=== PATIENT | female | born 1980 | race American Indian/Alaskan Native ===

== ENCOUNTER 2016-12-12 21:17 | Emergency (ER) | payer OTHER ==
[2016-12-13 03:59] VITALS: BP 166/94
--- NOTE | 2016-12-13 05:07 | Emergency Department Report ---
ED Female HPI - General Chief complaint: Urogenital-Female Stated complaint: VAGINAL IRRITATION Time Seen by Provider: 12/13/16 04:22 Source: patient Mode of arrival: Ambulatory Limitations: No Limitations - History of Present Illness Initial comments: 36 y/o female complain of vaginal itching and white discharge x 1 week with itching. Complaint: vaginal discharge Onset/Timin -: week(s) Improves with: none Worsens with: none Are you Now?: No - Related Data Home Medications Medication Instructions Recorded Confirmed Last Taken Hydrochlorothiazide [HCTZ] 0 mg PO QDAY 11/12/15 11/12/15 Unknown amLODIPine [Norvasc] 0 mg PO DAILY 11/12/15 11/12/15 Unknown Previous Rx's Medication Instructions Recorded Last Taken Type Phenazopyridine [Pyridium] 200 mg PO BID #6 tab 11/13/15 Unknown Rx Sulfamethoxazole/Trimethoprim 1 each PO BID #14 tablet 11/13/15 Unknown Rx [Bactrim DS TAB] Fluconazole [Diflucan TAB] 150 mg PO ONCE #1 tablet 05/09/16 Unknown Rx Levofloxacin [Levaquin TAB] 500 mg PO QDAY #5 tablet 05/09/16 Unknown Rx metroNIDAZOLE [Flagyl] 500 mg PO Q12HR #14 tab 05/09/16 Unknown Rx metroNIDAZOLE [Flagyl] 500 mg PO Q12HR #14 tab 12/13/16 Unknown Rx Allergies Allergy/AdvReac Type Severity Reaction Status Date / Time latex AdvReac Itching Verified 11/12/15 17:38 ED Review of Systems ROS: Stated complaint: VAGINAL IRRITATION Other details as noted in HPI Constitutional: denies: chills, fever Eyes: denies: eye pain, eye discharge, vision change ENT: denies: ear pain, throat pain Respiratory: denies: cough, shortness of breath, wheezing Cardiovascular: denies: chest pain, palpitations Endocrine: no symptoms reported Gastrointestinal: denies: abdominal pain, nausea, diarrhea Genitourinary: discharge. denies: urgency, dysuria Musculoskeletal: denies: back pain, joint swelling, arthralgia Skin: denies: rash, lesions Neurological: denies: headache, weakness, paresthesias Psychiatric: denies: anxiety, depression Hematological/Lymphatic: denies: easy bleeding, easy bruising ED Past Medical Hx - Past Medical History Previous Medical History?: Yes Hx Hypertension: Yes - Surgical History Past Surgical History?: No - Social History Smoking Status: Current Every Day Smoker Substance Use Type: None - Medications Home Medications: Home Medications Medication Instructions Recorded Confirmed Last Taken Type Hydrochlorothiazide [HCTZ] 0 mg PO QDAY 11/12/15 11/12/15 Unknown History amLODIPine [Norvasc] 0 mg PO DAILY 11/12/15 11/12/15 Unknown History Phenazopyridine [Pyridium] 200 mg PO BID #6 tab 11/13/15 Unknown Rx Sulfamethoxazole/Trimethoprim 1 each PO BID #14 tablet 11/13/15 Unknown Rx [Bactrim DS TAB] Fluconazole [Diflucan TAB] 150 mg PO ONCE #1 tablet 05/09/16 Unknown Rx Levofloxacin [Levaquin TAB] 500 mg PO QDAY #5 tablet 05/09/16 Unknown Rx metroNIDAZOLE [Flagyl] 500 mg PO Q12HR #14 tab 05/09/16 Unknown Rx metroNIDAZOLE [Flagyl] 500 mg PO Q12HR #14 tab 12/13/16 Unknown Rx ED Physical Exam - General Limitations: No Limitations General appearance: alert, in no apparent distress - Head Head exam: Present: atraumatic, normocephalic - Eye Eye exam: Present: normal appearance, PERRL - ENT ENT exam: Present: mucous membranes moist - Neck Neck exam: Present: normal inspection - Respiratory Respiratory exam: Present: normal lung sounds bilaterally. Absent: respiratory distress, wheezes - Cardiovascular Cardiovascular Exam: Present: regular rate, normal rhythm. Absent: systolic murmur, diastolic murmur, rubs, gallop - GI/Abdominal GI/Abdominal exam: Present: soft, normal bowel sounds - External exam: Present: normal external exam. Absent: erythema, swelling, lesions, lacerations Speculum exam: Present: vaginal discharge, cervical discharge. Absent: erythema , vaginal bleeding, foreign body, tissue, laceration Bi-manual exam: Present: normal bi-manual exam. Absent: cervical motion tendernes, adnexal tenderness, adnexal mass, uterine tenderness - Extremities Exam Extremities exam: Present: normal inspection - Back Exam Back exam: Present: normal inspection - Neurological Exam Neurological exam: Present: alert, oriented X3 - Psychiatric Psychiatric exam: Present: normal affect, normal mood - Skin Skin exam: Present: warm, dry, intact, normal color. Absent: rash ED Course Vital Signs 12/12/16 12/13/16 21:48 03:59 Temperature 98.3 F 97.9 F Pulse Rate 95 H 67 Respiratory 18 20 Rate Blood Pressure 160/118 Blood Pressure 166/94 [Right] O2 Sat by Pulse 100 100 Oximetry ED Medical Decision Making - Medical Decision Making Bacterial vaginosis Wet prep shows > 20 clue cells Critical care attestation.: If time is entered above; I have spent that time in minutes in the direct care of this critically ill patient, excluding procedure time. ED Disposition Clinical Impression: Bacterial vaginosis Disposition: DISCHARGED TO HOME OR SELFCARE Is pt being admited?: No Does the pt Need Aspirin: No Condition: Stable Instructions: Bacterial Vaginosis (ED) Prescriptions: metroNIDAZOLE [Flagyl] 500 mg PO Q12HR #14 tab Referrals: PRIMARY CARE, [Primary Care Provider] - 3-5 Days Forms: STI Treatment and Prevention, Work/School Release Form(ED) Time of Disposition: 05:50
[2016-12-13 05:36] LABS: Bacteria,Urine 1+ /HPF (Negative); Bilirubin,Urine NEG (Negative); Blood,Urine SM (Negative); Ketones,Urine NEG (Negative); Leukocyte Esterase,Urine MOD (Negative); Mucus,Urine FEW /HPF; Nitrite,Urine NEG (Negative); Urobilinogen,Urine < 2.0 mg/dL (<2.0)
== END 2016-12-13 06:09 | disposition home or self-care (01) ==
LOC: ED 21:17
DX: N76.0 Acute vaginitis (principal); I10 Essential (primary) hypertension; F17.200 Nicotine dependence, unspecified, uncomplicated
CPT/HCPCS: 81001; 81025; 87210; 87591; 99284

== ENCOUNTER 2017-03-08 09:23 | Emergency (ER) | payer SELFPAY ==
--- NOTE | 2017-03-08 12:33 | Emergency Department Report ---
ED ENT HPI - General Chief complaint: Sore Throat Stated complaint: THROAT SORE Time Seen by Provider: 03/08/17 12:22 Source: patient Mode of arrival: Ambulatory Limitations: No Limitations - History of Present Illness Initial comments: 36-year-old female past medical history hypertension presents with complaint of sore throat worsening 3 days. Patient has slightly muffled voice. States she is having difficulty swallowing solids and pain with swallowing liquids. MD complaint: sore throat Onset/Timin -: days(s) Location: throat Severity: moderate Severity scale (0 -10): 6 Quality: aching, sharp, constant - Related Data Home Medications Medication Instructions Recorded Confirmed Last Taken amLODIPine [Norvasc] 10 mg PO DAILY 11/12/15 03/08/17 03/06/17 09:00 Previous Rx's Medication Instructions Recorded Last Taken Type Acetaminophen/Codeine [Tylenol 1 tab PO Q6H PRN #12 tab 03/08/17 Unknown Rx /Codeine # 3 tab] Benzocaine/Menthol [Cepacol Sore 1 each MM Q4H PRN #18 lozenge 03/08/17 Unknown Rx Throat Lozenge] Clindamycin [Clindamycin CAP] 300 mg PO Q6H #28 capsule 03/08/17 Unknown Rx Ibuprofen [Motrin] 800 mg PO Q8HR PRN #30 tablet 03/08/17 Unknown Rx Potassium Chloride 20 meq PO QDAY #10 packet 03/08/17 Unknown Rx amLODIPine [Norvasc] 10 mg PO DAILY #30 tab 03/08/17 Unknown Rx Allergies Allergy/AdvReac Type Severity Reaction Status Date / Time latex AdvReac Itching Verified 03/08/17 10:22 ED Dental HPI - General Chief complaint: Sore Throat Stated complaint: THROAT SORE Time Seen by Provider: 03/08/17 12:22 Source: patient Mode of arrival: Ambulatory Limitations: No Limitations - Related Data Home Medications Medication Instructions Recorded Confirmed Last Taken amLODIPine [Norvasc] 10 mg PO DAILY 11/12/15 03/08/17 03/06/17 09:00 Previous Rx's Medication Instructions Recorded Last Taken Type Acetaminophen/Codeine [Tylenol 1 tab PO Q6H PRN #12 tab 03/08/17 Unknown Rx /Codeine # 3 tab] Benzocaine/Menthol [Cepacol Sore 1 each MM Q4H PRN #18 lozenge 03/08/17 Unknown Rx Throat Lozenge] Clindamycin [Clindamycin CAP] 300 mg PO Q6H #28 capsule 03/08/17 Unknown Rx Ibuprofen [Motrin] 800 mg PO Q8HR PRN #30 tablet 03/08/17 Unknown Rx Potassium Chloride 20 meq PO QDAY #10 packet 03/08/17 Unknown Rx amLODIPine [Norvasc] 10 mg PO DAILY #30 tab 03/08/17 Unknown Rx Allergies Allergy/AdvReac Type Severity Reaction Status Date / Time latex AdvReac Itching Verified 03/08/17 10:22 ED Review of Systems ROS: Stated complaint: THROAT SORE Other details as noted in HPI Constitutional: malaise. denies: chills, fever Eyes: denies: eye pain, eye discharge, vision change ENT: throat pain. denies: ear pain Respiratory: denies: cough, shortness of breath, wheezing Cardiovascular: denies: chest pain, palpitations Endocrine: no symptoms reported Gastrointestinal: denies: abdominal pain, nausea, diarrhea Genitourinary: denies: urgency, dysuria, discharge Musculoskeletal: denies: back pain, joint swelling, arthralgia Skin: denies: rash, lesions Neurological: denies: headache, weakness, paresthesias Psychiatric: denies: anxiety, depression Hematological/Lymphatic: denies: easy bleeding, easy bruising ED Past Medical Hx - Past Medical History Hx Hypertension: Yes - Surgical History Past Surgical History?: No - Social History Smoking Status: Current Every Day Smoker Substance Use Type: Alcohol - Medications Home Medications: Home Medications Medication Instructions Recorded Confirmed Last Taken Type amLODIPine [Norvasc] 10 mg PO DAILY 11/12/15 03/08/17 03/06/17 09:00 History Acetaminophen/Codeine [Tylenol 1 tab PO Q6H PRN #12 tab 03/08/17 Unknown Rx /Codeine # 3 tab] Benzocaine/Menthol [Cepacol Sore 1 each MM Q4H PRN #18 lozenge 03/08/17 Unknown Rx Throat Lozenge] Clindamycin [Clindamycin CAP] 300 mg PO Q6H #28 capsule 03/08/17 Unknown Rx Ibuprofen [Motrin] 800 mg PO Q8HR PRN #30 tablet 03/08/17 Unknown Rx Potassium Chloride 20 meq PO QDAY #10 packet 03/08/17 Unknown Rx amLODIPine [Norvasc] 10 mg PO DAILY #30 tab 03/08/17 Unknown Rx ED Physical Exam - General Limitations: No Limitations General appearance: alert, in no apparent distress - Head Head exam: Present: atraumatic, normocephalic - Eye Eye exam: Present: normal appearance, PERRL, EOMI - ENT ENT exam: Present: mucous membranes moist - Expanded ENT Exam Expanded Throat exam: Positive: tonsillar erythema, tonsillomegaly, tonsillar exudate, L peritonsillar mass - Neck Neck exam: Present: normal inspection, tenderness (+ cervical adenopathy), full ROM - Respiratory Respiratory exam: Present: normal lung sounds bilaterally. Absent: respiratory distress - Cardiovascular Cardiovascular Exam: Present: regular rate, normal rhythm. Absent: systolic murmur, diastolic murmur, rubs, gallop - GI/Abdominal GI/Abdominal exam: Present: soft, normal bowel sounds - Extremities Exam Extremities exam: Present: normal inspection - Back Exam Back exam: Present: normal inspection - Neurological Exam Neurological exam: Present: alert, oriented X3 - Psychiatric Psychiatric exam: Present: normal affect, normal mood - Skin Skin exam: Present: warm, dry, intact, normal color. Absent: rash ED Course Vital Signs 03/08/17 03/08/17 10:18 15:12 Temperature 98.4 F Pulse Rate 96 H 82 Respiratory 18 Rate Blood Pressure 161/110 156/102 O2 Sat by Pulse 100 Oximetry ED Medical Decision Making - Lab Data Result diagrams: 03/08/17 12:36 03/08/17 12:36 - Medical Decision Making A/P: Left peritonsillar cellulitis, asymptomatic HTN 1-CT scan with contrast shows no defined abscess does show inflammation consistent with infection 2-patient given 600 mg IV clindamycin will continue clindamycin 4 times a day for one week 3-Motrin when necessary, Tylenol 3 short course when necessary 4-sore throat lozenges 5- advised patient to return to the ED if symptoms worsen despite antibiotic and anti-inflammatory use 6-pt able to tolerate by mouth fluids without difficulty 7- follow up with ENT and primary care 8- pt states she has not taken her amlodipine in a month. report no CP, palps, nausea, SOB, no headache or dizziness. will fill script and have pt f/u with PMD 9- kphos for potassium repletion Critical care attestation.: If time is entered above; I have spent that time in minutes in the direct care of this critically ill patient, excluding procedure time. ED Disposition Clinical Impression: Cellulitis of tonsil Disposition: DISCHARGED TO HOME OR SELFCARE Is pt being admited?: No Does the pt Need Aspirin: No Condition: Stable Instructions: Cellulitis (ED), Tonsillitis (ED) Prescriptions: Acetaminophen/Codeine [Tylenol /Codeine # 3 tab] 1 tab PO Q6H PRN #12 tab PRN Reason: Sore Throat amLODIPine [Norvasc] 10 mg PO DAILY #30 tab Benzocaine/Menthol [Cepacol Sore Throat Lozenge] 1 each MM Q4H PRN #18 lozenge PRN Reason: Sore Throat Clindamycin [Clindamycin CAP] 300 mg PO Q6H #28 capsule Ibuprofen [Motrin] 800 mg PO Q8HR PRN #30 tablet PRN Reason: Sore Throat Potassium Chloride 20 meq PO QDAY #10 packet Referrals: [facility] [Provider Group] - 3-5 Days [facility] [Provider Group] - 3-5 Days [facility] [Outside] - 3-5 Days REYNOLD MANRIQUE MD [Staff Physician] - 3-5 Days Forms: Work/School Release Form(ED) Time of Disposition: 14:37
[2017-03-08] MEDS ORDERED: DECADRON IV ONE (12:34)
[2017-03-08] MEDS ORDERED: MORPHINE IV ONE (12:34)
[2017-03-08] MEDS ORDERED: CLEOCIN 600 MG/50 mL 600 MG/50 ML BAG IV ONE (12:36)
[2017-03-08 12:53] LABS: Basophils % (Auto) 0.2 % (0.0-1.8); Hematocrit 32.6 % (30.3-42.9); Hemoglobin 10.5 gm/dl (10.1-14.3); Mean Corpuscular HGB Conc 32 % (30-34); Mean Corpuscular Volume 80 fl (79-97); Platelet Count 260 K/mm3 (140-440); Red Blood Count 4.06 M/mm3 (3.65-5.03); Red Cell Distribution Width 16.4 % (13.2-15.2); White Blood Count 14.3 K/mm3 (4.5-11.0)
[2017-03-08 12:57] LABS: Mean Corpuscular Hemoglobin 26 pg (28-32)
[2017-03-08 13:09] LABS: Anion Gap 21 mmol/L; Blood Urea Nitrogen 9 mg/dL (7-17); Calcium 9.2 mg/dL (8.4-10.2); Carbon Dioxide 24 mmol/L (22-30); Chloride 98.5 mmol/L (98-107); Glucose 78 mg/dL (65-100); Potassium 3.2 mmol/L (3.6-5.0); Sodium 140 mmol/L (137-145)
[2017-03-08] MEDS ORDERED: NACL ONE (13:20)
[2017-03-08] MEDS ORDERED: ZOFRAN IV ONE (13:55)
[2017-03-08] MEDS ORDERED: TORADOL IV ONE (13:55)
--- NOTE | 2017-03-08 14:22 | Cat Scan Report ---
CT NECK WITH CONTRAST: HISTORY: Neck pain, peritonsillar abscess. TECHNIQUE: Helical CT following IV contrast. Sagittal and coronal reformatted images. FINDINGS: There is mild to moderate nonspecific soft tissue swelling in the left side of the palatine tonsils. There is an approximate 1.4 cm area of diminished density in the left palatine tonsils but no peripherally enhancing or mature abscess is identified at this time. The remaining parapharyngeal structures are within normal limits. The airway is patent. There are a few scattered reactive jugular lymph nodes bilaterally. No bulky adenopathy or necrotic lymph nodes. The thyroid gland, bony structures and visualized brain are within normal limits. The lung apices are clear. IMPRESSION: Left peritonsillar soft tissue swelling but no defined abscess is identified at this time.
[2017-03-08] MEDS ORDERED: LIDOCAINE VISCOUS 2% PO ONE (15:02)
[2017-03-08] MEDS ORDERED: NORVASC PO ONE (15:03)
[2017-03-08] MEDS ORDERED: PHOS-NAK PO ONE (15:30)
[2017-03-08 16:41] VITALS: BP 142/90
== END 2017-03-08 16:36 | disposition home or self-care (01) ==
LOC: ED 09:23
DX: J36 Peritonsillar abscess (principal); I10 Essential (primary) hypertension; F17.200 Nicotine dependence, unspecified, uncomplicated
CPT/HCPCS: 36415; 70491; 80048; 81025; 82140; 85025; 87116; 87430; 96365; 96375; 99284; J1100; J1885; J2270; J2405; Q9967

== ENCOUNTER 2017-03-10 05:02 | Inpatient (IN) | payer OTHER ==
[2017-03-10] MEDS ORDERED: DELTASONE PO ONE (05:43)
[2017-03-10] MEDS ORDERED: BENADRYL PO ONE (05:43)
[2017-03-10] MEDS ORDERED: BENADRYL IV ONE (06:06)
--- NOTE | 2017-03-10 07:26 | Emergency Department Report ---
HPI - General Chief Complaint: Allergic Reaction Time Seen by Provider: 03/10/17 07:21 ED Past Medical Hx - Past Medical History Previous Medical History?: Yes Hx Hypertension: Yes Additional medical history: TONSILITIS - Surgical History Past Surgical History?: No - Social History Smoking Status: Current Every Day Smoker Substance Use Type: None - Medications Home Medications: Home Medications Medication Instructions Recorded Confirmed Last Taken Type amLODIPine [Norvasc] 10 mg PO DAILY 11/12/15 03/08/17 03/06/17 09:00 History Acetaminophen/Codeine [Tylenol 1 tab PO Q6H PRN #12 tab 03/08/17 Unknown Rx /Codeine # 3 tab] Benzocaine/Menthol [Cepacol Sore 1 each MM Q4H PRN #18 lozenge 03/08/17 Unknown Rx Throat Lozenge] Clindamycin [Clindamycin CAP] 300 mg PO Q6H #28 capsule 03/08/17 Unknown Rx Ibuprofen [Motrin] 800 mg PO Q8HR PRN #30 tablet 03/08/17 Unknown Rx Potassium Chloride 20 meq PO QDAY #10 packet 03/08/17 Unknown Rx amLODIPine [Norvasc] 10 mg PO DAILY #30 tab 03/08/17 Unknown Rx ED Review of Systems ROS: Stated complaint: REACTION TO MEDICATION, USHA Other details as noted in HPI Physical Exam - Physical Exam Vital Signs: Vital Signs 03/10/17 05:19 Temperature 98.1 F Pulse Rate 81 Respiratory 18 Rate Blood Pressure 161/116 O2 Sat by Pulse 97 Oximetry ED Course Vital Signs 03/10/17 05:19 Temperature 98.1 F Pulse Rate 81 Respiratory 18 Rate Blood Pressure 161/116 O2 Sat by Pulse 97 Oximetry Critical care attestation.: If time is entered above; I have spent that time in minutes in the direct care of this critically ill patient, excluding procedure time. ED Disposition Condition: Stable Referrals: PRIMARY CARE, [Primary Care Provider] - 3-5 Days
--- NOTE | 2017-03-10 07:29 | Emergency Department Report ---
ED ENT HPI - General Chief complaint: Allergic Reaction Stated complaint: REACTION TO MEDICATION, USHA Time Seen by Provider: 03/10/17 07:21 Source: patient Mode of arrival: Ambulatory Limitations: No Limitations - History of Present Illness Initial comments: Patient here complaining and that she was diagnosed with tonsillitis at this hospital 2 days ago. 03/08/2017. She states she was started on clindamycin Fareston night and she did take an medication yesterday. She says she took 4 days worth of her clindamycin and her throat is continued to swell. She says she woke up this morning with facial swelling, ears popping, difficulty swallowing and drooling. She said it is difficult for her to talk. Denies any fever or chills. She said her pain is 10 out of 10 to her throat worse with swallowing. Denies any shortness of breath or chest pain. Patient blood pressure is 161/116 and she said since she started having sore throat hurts been difficult for her to take her Norvasc so she has hasn't taken it for 3 days. Patient was seen on 03/08/2017 CT scan of the neck with IV contrast showed that she had left peritonsillar soft tissue swelling but no deformity and abscess. Her strep culture is and rapid strep were negative. White count 2 days ago was 14.3. Patient was given clindamycin IV prior to discharge. Her potassium at that time was 3.2 and potassium but patient could not take due to difficulty swallowing. BUN/creatinine was normal and she had a negative test. MD complaint: sore throat, difficulty swallowing Onset/Timin -: days(s) Location: throat Severity: severe Severity scale (0 -10): 10 Quality: constant, other (throbbing.) Consistency: constant Improves with: other medication (antibiotic and pain medication) Worsens with: swallowing Associated Symptoms: pain with swallowing, sore throat, other (bilateral ear popping). denies: fever, cough, gum swelling, toothache, tinnitus, hearing loss , discharge from ear, rhinorrhea - Related Data Previous Rx's Medication Instructions Recorded Last Taken Type Acetaminophen/Codeine [Tylenol 1 tab PO Q6H PRN #12 tab 03/11/17 Unknown Rx /Codeine # 3 tab] Amoxicillin/K Clav Tab [Augmentin 1 tab PO Q12HR #28 tab 03/11/17 Unknown Rx 875 mg] Benzocaine/Menthol [Cepacol Sore 1 each MM Q4H PRN #18 lozenge 03/11/17 Unknown Rx Throat Lozenge] Lisinopril [Zestril TAB] 20 mg PO QDAY #30 tablet 03/11/17 Unknown Rx amLODIPine [Norvasc] 10 mg PO DAILY #30 tablet 03/11/17 Unknown Rx Allergies Allergy/AdvReac Type Severity Reaction Status Date / Time latex AdvReac Itching Verified 03/08/17 10:22 ED Dental HPI - General Chief complaint: Allergic Reaction Stated complaint: REACTION TO MEDICATION, USHA Time Seen by Provider: 03/10/17 07:21 Source: patient Mode of arrival: Ambulatory Limitations: No Limitations - Related Data Previous Rx's Medication Instructions Recorded Last Taken Type Acetaminophen/Codeine [Tylenol 1 tab PO Q6H PRN #12 tab 03/11/17 Unknown Rx /Codeine # 3 tab] Amoxicillin/K Clav Tab [Augmentin 1 tab PO Q12HR #28 tab 03/11/17 Unknown Rx 875 mg] Benzocaine/Menthol [Cepacol Sore 1 each MM Q4H PRN #18 lozenge 03/11/17 Unknown Rx Throat Lozenge] Lisinopril [Zestril TAB] 20 mg PO QDAY #30 tablet 03/11/17 Unknown Rx amLODIPine [Norvasc] 10 mg PO DAILY #30 tablet 03/11/17 Unknown Rx Allergies Allergy/AdvReac Type Severity Reaction Status Date / Time latex AdvReac Itching Verified 03/08/17 10:22 ED Review of Systems ROS: Stated complaint: REACTION TO MEDICATION, USHA Other details as noted in HPI Comment: All other systems reviewed and negative Constitutional: denies: chills, fever ENT: throat pain. denies: ear pain, dental pain, congestion Respiratory: no symptoms reported Cardiovascular: denies: chest pain, palpitations, edema, syncope Gastrointestinal: denies: abdominal pain, nausea, vomiting Musculoskeletal: denies: back pain, arthralgia Skin: denies: rash Neurological: denies: headache ED Past Medical Hx - Past Medical History Previous Medical History?: Yes Hx Hypertension: Yes Additional medical history: TONSILITIS - Surgical History Past Surgical History?: No - Family History Family history: hypertension - Social History Smoking Status: Current Every Day Smoker Substance Use Type: None - Medications Home Medications: Home Medications Medication Instructions Recorded Confirmed Last Taken Type Acetaminophen/Codeine [Tylenol 1 tab PO Q6H PRN #12 tab 03/11/17 Unknown Rx /Codeine # 3 tab] Amoxicillin/K Clav Tab [Augmentin 1 tab PO Q12HR #28 tab 03/11/17 Unknown Rx 875 mg] Benzocaine/Menthol [Cepacol Sore 1 each MM Q4H PRN #18 lozenge 03/11/17 Unknown Rx Throat Lozenge] Lisinopril [Zestril TAB] 20 mg PO QDAY #30 tablet 03/11/17 Unknown Rx amLODIPine [Norvasc] 10 mg PO DAILY #30 tablet 03/11/17 Unknown Rx ED Physical Exam - General Limitations: No Limitations General appearance: alert, in no apparent distress - Head Head exam: Present: atraumatic, normocephalic, normal inspection - Eye Eye exam: Present: normal appearance, PERRL, EOMI Pupils: Present: normal accommodation - ENT ENT exam: Present: mucous membranes moist, TM's normal bilaterally, normal external ear exam. Absent: normal orophraynx - Expanded ENT Exam Expanded Ear exam: Present: normal external inspection Mouth exam: Present: drooling, muffled voice, other (uvula shifted to rt) Throat exam: Positive: tonsillar erythema (mitul. Greater on left), tonsillomegaly (left), L peritonsillar mass. Negative: tonsillar exudate, R peritonsillar mass - Neck Neck exam: Present: tenderness, full ROM, lymphadenopathy. Absent: normal inspection (mitul adenopathy) - Respiratory Respiratory exam: Present: normal lung sounds bilaterally. Absent: respiratory distress, wheezes, stridor, chest wall tenderness - Cardiovascular Cardiovascular Exam: Present: regular rate, normal rhythm, normal heart sounds - GI/Abdominal GI/Abdominal exam: Present: soft, normal bowel sounds. Absent: distended, tenderness, rigid - Extremities Exam Extremities exam: Present: normal inspection, full ROM, normal capillary refill. Absent: tenderness, pedal edema, joint swelling, calf tenderness - Back Exam Back exam: Present: normal inspection, full ROM - Neurological Exam Neurological exam: Present: alert, oriented X3, normal gait, reflexes normal. Absent: motor sensory deficit - Psychiatric Psychiatric exam: Present: normal affect, normal mood - Skin Skin exam: Present: warm, dry, intact, normal color. Absent: rash ED Course Vital Signs 03/10/17 03/10/17 03/10/17 05:19 07:35 07:48 Temperature 98.1 F 97.8 F Pulse Rate 81 76 76 Respiratory 18 18 Rate Blood Pressure 161/116 162/101 Blood Pressure 162/101 [Right] O2 Sat by Pulse 97 99 Oximetry 03/10/17 03/10/17 03/10/17 07:54 08:24 09:07 Temperature 98.4 F Pulse Rate 74 Respiratory 18 18 18 Rate Blood Pressure Blood Pressure 148/94 [Right] O2 Sat by Pulse 99 Oximetry 03/10/17 03/10/17 03/10/17 11:39 12:03 12:10 Temperature Pulse Rate 76 Respiratory 18 17 13 Rate Blood Pressure 154/96 Blood Pressure [Right] O2 Sat by Pulse 100 99 Oximetry 03/10/17 03/10/17 03/10/17 12:15 12:20 12:30 Temperature Pulse Rate 76 73 Respiratory 18 13 14 Rate Blood Pressure 156/104 162/103 Blood Pressure [Right] O2 Sat by Pulse 98 100 Oximetry 03/10/17 03/10/17 03/10/17 12:40 12:45 12:50 Temperature 98.2 F Pulse Rate 75 72 72 Respiratory 16 18 11 L Rate Blood Pressure 162/103 162/103 Blood Pressure 162/103 [Right] O2 Sat by Pulse 100 100 99 Oximetry 03/10/17 03/10/17 03/10/17 13:00 13:10 13:24 Temperature Pulse Rate 72 71 Respiratory 11 L 14 Rate Blood Pressure 138/96 138/96 Blood Pressure [Right] O2 Sat by Pulse 100 98 82 L Oximetry Vital Signs 03/10/17 03/10/17 03/10/17 05:19 07:35 07:48 Temperature 98.1 F 97.8 F Pulse Rate 81 76 76 Respiratory 18 18 Rate Blood Pressure 161/116 162/101 Blood Pressure 162/101 [Right] O2 Sat by Pulse 97 99 Oximetry 03/10/17 03/10/17 03/10/17 07:54 08:24 09:07 Temperature 98.4 F Pulse Rate 74 Respiratory 18 18 18 Rate Blood Pressure Blood Pressure 148/94 [Right] O2 Sat by Pulse 99 Oximetry - Reevaluation(s) Reevaluation #1: 03/10/17 08:00 Patient given Benadryl IV, Solumedrol IV, IV fluids started, morphine and Toradol IV, Zofran IV and potassium rider 40 mEq IV. Her blood pressure is elevated and she is unable to take her medication due to difficulty swallowing therefore she was given hydralazine 20 mg IV. Patient awaiting CT scan. Labs ordered and pending. I Discussed with patient treatment plan and she is in agreement. Reevaluation #2: 03/10/17 09:25 Dr zazueta examining patient. Patient stable. Patient will be admitted for iv abx 03/10/17 09:27 Reevaluation #3: 03/10/17 10:20 Dr. Hayden hospitalist evaluate patient. I instructed on D5 half-normal saline at 1 25 cc an hour ED Medical Decision Making - Lab Data Result diagrams: 03/11/17 03:58 03/11/17 03:58 Lab Results 03/10/17 03/10/17 03/10/17 Range/Units 07:46 07:46 07:46 WBC 14.3 H (4.5-11.0) K/mm3 RBC 3.92 (3.65-5.03) M/mm3 Hgb 10.2 (10.1-14.3) gm/dl Hct 31.8 (30.3-42.9) % MCV 81 (79-97) fl MCH 26 L (28-32) pg MCHC 32 (30-34) % RDW 16.3 H (13.2-15.2) % Plt Count 265 (140-440) K/mm3 Lymph % (Auto) 10.9 L (13.4-35.0) % Marin % (Auto) 3.0 (0.0-7.3) % Eos % (Auto) 0.1 (0.0-4.3) % Baso % (Auto) 0.1 (0.0-1.8) % Lymph # 1.6 (1.2-5.4) K/mm3 Marin # 0.4 (0.0-0.8) K/mm3 Eos # 0.0 (0.0-0.4) K/mm3 Baso # 0.0 (0.0-0.1) K/mm3 Seg Neutrophils % 85.9 H (40.0-70.0) % Seg Neutrophils # 12.3 H (1.8-7.7) K/mm3 PT 13.2 (12.2-14.9) Sec. INR 1.01 (0.87-1.13) APTT 27.0 (24.2-36.6) Sec. Sodium 140 (137-145) mmol/L Potassium 3.5 L (3.6-5.0) mmol/L Chloride 101.4 (98-107) mmol/L Carbon Dioxide 24 (22-30) mmol/L Anion Gap 18 mmol/L BUN 10 (7-17) mg/dL Creatinine 0.8 (0.7-1.2) mg/dL Estimated GFR > 60 ml/min BUN/Creatinine Ratio 12.50 % Glucose 88 (65-100) mg/dL Lactic Acid (0.7-2.0) mmol/L Calcium 8.8 (8.4-10.2) mg/dL Magnesium (1.7-2.3) mg/dL Total Bilirubin 0.40 (0.1-1.2) mg/dL Direct Bilirubin < 0.2 (0-0.2) mg/dL AST 9 (5-40) units/L ALT 13 (7-56) units/L Alkaline Phosphatase 53 (35-129) units/L C-Reactive Protein 5.60 H (0.00-1.30) mg/dL Total Protein 7.8 (6.3-8.2) g/dL Albumin 3.7 L (3.9-5) g/dL Albumin/Globulin Ratio 0.9 % 03/10/17 03/10/17 Range/Units 07:46 07:46 WBC (4.5-11.0) K/mm3 RBC (3.65-5.03) M/mm3 Hgb (10.1-14.3) gm/dl Hct (30.3-42.9) % MCV (79-97) fl MCH (28-32) pg MCHC (30-34) % RDW (13.2-15.2) % Plt Count (140-440) K/mm3 Lymph % (Auto) (13.4-35.0) % Marin % (Auto) (0.0-7.3) % Eos % (Auto) (0.0-4.3) % Baso % (Auto) (0.0-1.8) % Lymph # (1.2-5.4) K/mm3 Marin # (0.0-0.8) K/mm3 Eos # (0.0-0.4) K/mm3 Baso # (0.0-0.1) K/mm3 Seg Neutrophils % (40.0-70.0) % Seg Neutrophils # (1.8-7.7) K/mm3 PT (12.2-14.9) Sec. INR (0.87-1.13) APTT (24.2-36.6) Sec. Sodium (137-145) mmol/L Potassium (3.6-5.0) mmol/L Chloride (98-107) mmol/L Carbon Dioxide (22-30) mmol/L Anion Gap mmol/L BUN (7-17) mg/dL Creatinine (0.7-1.2) mg/dL Estimated GFR ml/min BUN/Creatinine Ratio % Glucose (65-100) mg/dL Lactic Acid 1.00 (0.7-2.0) mmol/L Calcium (8.4-10.2) mg/dL Magnesium 2.10 (1.7-2.3) mg/dL Total Bilirubin (0.1-1.2) mg/dL Direct Bilirubin (0-0.2) mg/dL AST (5-40) units/L ALT (7-56) units/L Alkaline Phosphatase (35-129) units/L C-Reactive Protein (0.00-1.30) mg/dL Total Protein (6.3-8.2) g/dL Albumin (3.9-5) g/dL Albumin/Globulin Ratio % bloodCultures are pending - Radiology Data Radiology results: report reviewed CT scan of the neck with IV contrast showed reidentified inflammatory changes of the palatine tonsils more on the left. There is more coalescent decreased density of the left palatine tonsil with phlegm on and likely early abscess formation. There is narrowing of the pharyngeal airway at this level as well as worst nasopharyngeal airway narrowing with mucosal swelling of the nasopharynx. Soft tissue density within the nasopharynx is not excluded. Mild mucosal disease of the maxillary sinuses - Medical Decision Making Collaborated with Dr. Zazueta on patient presentation clinical findings along with diagnosis and lab results. He evaluated patient and it was decided the patient will be admitted by hospitalist for antibiotic treatment. ED course: Patient presents to edges room with complaints of worsening sore throat and inability to swallow. He was recently seen and diagnosed with tonsillitis CT scan was done of her neck with IV contrast and it showed that she had inflammatory changes to her tonsils left greater than right. She is now complaining that is very hard for her to swallow, she's strolling anaphoresis changing. Repeat CT scan showed that patient has inflammatory changes to tonsils that new left peritonsillar abscess which is minimal. Patient was given IV fluid in emergency room. Dr. Hayden the hospitalist was consulted and he saw patient in ED. Patient to be admitted to ICU. Patient updated on her CT scan results and plans to admit her to ICU. She is in agreement. Patient with left peritonsillar abscess, tonsillitis, pharyngitis, Leukocytosis, hypokalemia and elevate dblood pressure with DX of HTN. She has not taken BP meds because of difficulty swallowing.Patient given Benadryl IV, Solumedrol IV, IV fluids started, morphine and Toradol IV, Zofran IV and potassium rider 40 mEq IV. Her blood pressure is elevated and she is unable to take her medication due to difficulty swallowing therefore she was given hydralazine 20 mg IV. BP has normalized. Patient said her pain is better. CRP was elevated and white count is normal with mild shifting to the left. Lactic acid 1.0. She is in stable condition awaiting ICU bed. Critical care attestation.: If time is entered above; I have spent that time in minutes in the direct care of this critically ill patient, excluding procedure time. ED Disposition Clinical Impression: Peritonsillar abscess, Hypokalemia, Elevated blood pressure reading with diagnosis of hypertension Acute pharyngitis Qualifiers: Pharyngitis/tonsillitis etiology: unspecified etiology Qualified Code(s): J02.9 - Acute pharyngitis, unspecified Acute tonsillitis Qualifiers: Pharyngitis/tonsillitis etiology: unspecified etiology Qualified Code(s): J03.90 - Acute tonsillitis, unspecified Leukocytosis Qualifiers: Leukocytosis type: unspecified Qualified Code(s): D72.829 - Elevated white blood cell count, unspecified Disposition: OP ADMITTED IP TO THIS HOSP Is pt being admited?: Yes Does the pt Need Aspirin: No Condition: Stable
[2017-03-10] MEDS ORDERED: APRESOLINE IV ONE (07:36)
[2017-03-10] MEDS ORDERED: NACL ONE (07:36)
[2017-03-10] MEDS ORDERED: NACL 0.9% 1000 ML 1,000 ML IV ONE (07:38)
[2017-03-10] MEDS ORDERED: ZOSYN/NS 4.5GM/100ML 4.5 GM/100 ML VIAL IV ONE (07:40)
[2017-03-10] MEDS ORDERED: MORPHINE IV ONE (07:43)
[2017-03-10] MEDS ORDERED: KCL 10MEQ/100ML 10 MEQ/100 ML BAG IV ONE (07:59)
[2017-03-10 08:06] LABS: Basophils % (Auto) 0.1 % (0.0-1.8); Eosinophils % (Auto) 0.1 % (0.0-4.3); Hematocrit 31.8 % (30.3-42.9); Hemoglobin 10.2 gm/dl (10.1-14.3); Mean Corpuscular HGB Conc 32 % (30-34); Mean Corpuscular Volume 81 fl (79-97); Platelet Count 265 K/mm3 (140-440); Red Blood Count 3.92 M/mm3 (3.65-5.03); Red Cell Distribution Width 16.3 % (13.2-15.2); White Blood Count 14.3 K/mm3 (4.5-11.0)
[2017-03-10 08:15] LABS: INR 1.01 (0.87-1.13)
[2017-03-10 08:22] LABS: Alanine Aminotransferase 13 units/L (7-56); Albumin 3.7 g/dL (3.9-5); Albumin/Globulin Ratio 0.9 %; Alkaline Phosphatase 53 units/L (35-129); Anion Gap 18 mmol/L; Blood Urea Nitrogen 10 mg/dL (7-17); Calcium 8.8 mg/dL (8.4-10.2); Carbon Dioxide 24 mmol/L (22-30); Chloride 101.4 mmol/L (98-107); Glucose 88 mg/dL (65-100); Potassium 3.5 mmol/L (3.6-5.0); Sodium 140 mmol/L (137-145); Total Protein 7.8 g/dL (6.3-8.2)
--- NOTE | 2017-03-10 08:31 | Cat Scan Report ---
FINAL REPORT PROCEDURE: CT NECK W CON TECHNIQUE: Consent was obtained. IV contrast was administered and axial sections as well as coronal and sagittal reformatted images were viewed through the soft tissue neck. HISTORY: drooling with possible abscess COMPARISON: Contrast-enhanced CT of the neck 03/08/2017 FINDINGS: Again seen is prominence of the palatine tonsils more pronounced on the left with multi focal decreased density. New since the prior examination is subtle more coalescent fluid on the left for example seen on axial image 34. Prominence of the nasopharyngeal soft tissues is present with narrowing of the nasopharyngeal airway. Lesser narrowing of the oral pharyngeal airway is seen. The intrinsic tongue musculature is intact. The lingual tonsils are normal in appearance. Again seen is lymphadenopathy grossly stable the largest lymph node in the axial plane within the left anterior triangle 2.1 x 1.1 centimeters. There is no armen necrosis or calcification. The epiglottis, pharyngo epiglottic folds, piriform sinuses, and larynx are normal. Normal sized bilateral intra parotid lymph nodes are seen. The submandibular glands are unremarkable. There is no acute osseous abnormality. Mild mucosal thickening of the maxillary sinuses is present. IMPRESSION: Re-identified inflammatory change of the palatine tonsils more on the left. There is more coalescent decreased density of the left palatine tonsil with phlegmon and likely early abscess formation. There is narrowing of the oral pharyngeal airway at this level as well as worse nasopharyngeal airway narrowing with mucosal swelling of the nasopharynx. An element of soft tissue density secretions within the nasopharynx is not excluded. Stable lymphadenopathy. Mild mucosal disease of the maxillary sinuses.
[2017-03-10 08:33] LABS: Bilirubin,Direct < 0.2 mg/dL (0-0.2)
[2017-03-10 08:39] LABS: Mean Corpuscular Hemoglobin 26 pg (28-32)
[2017-03-10] MEDS ORDERED: D5NS 1,000 ML IV ONE (09:46)
[2017-03-10] MEDS ORDERED: D5NS 1,000 ML IV SCH ×2 (10:00→11:00)
[2017-03-10] MEDS ORDERED: DULCOLAX PR PRN (11:35)
[2017-03-10] MEDS ORDERED: MILK OF MAGNESIA PO PRN (11:35)
[2017-03-10] MEDS ORDERED: ALUM-MAG HYDROX-SIMETH 200-200-20MG/5ML PO PRN (11:35)
--- NOTE | 2017-03-10 11:53 | History and Physical Report ---
History of Present Illness Date of examination: 03/10/17 History of present illness: Patient here complaining and that she was diagnosed with tonsillitis at this hospital 2 days ago. 03/08/2017. She states she was started on clindamycin Fareston night and she did take an medication yesterday. She says she took 4 days worth of her clindamycin and her throat is continued to swell. She says she woke up this morning with facial swelling, ears popping, difficulty swallowing and drooling. She said it is difficult for her to talk. Denies any fever or chills. She said her pain is 10 out of 10 to her throat worse with swallowing. Denies any shortness of breath or chest pain. Patient blood pressure is 161/116 and she said since she started having sore throat hurts been difficult for her to take her Norvasc so she has hasn't taken it for 3 days. Patient was seen on 03/08/2017 CT scan of the neck with IV contrast showed that she had left peritonsillar soft tissue swelling but no deformity and abscess. Her strep culture is and rapid strep were negative. White count 2 days ago was 14.3. Patient was given clindamycin IV prior to discharge. Her potassium at that time was 3.2 and potassium but patient could not take due to difficulty swallowing. BUN/creatinine was normal and she had a negative test. Past History Past Medical History: hypertension Medications and Allergies Allergies Allergy/AdvReac Type Severity Reaction Status Date / Time latex AdvReac Itching Verified 03/08/17 10:22 Home Medications Medication Instructions Recorded Confirmed Last Taken Type amLODIPine [Norvasc] 10 mg PO DAILY 11/12/15 03/10/17 03/06/17 09:00 History Acetaminophen/Codeine [Tylenol 1 tab PO Q6H PRN #12 tab 03/08/17 03/10/17 Rx /Codeine # 3 tab] Benzocaine/Menthol [Cepacol Sore 1 each MM Q4H PRN #18 lozenge 03/08/17 Unknown Rx Throat Lozenge] Clindamycin [Clindamycin CAP] 300 mg PO Q6H #28 capsule 03/08/17 03/10/17 Rx Ibuprofen [Motrin] 800 mg PO Q8HR PRN #30 tablet 03/08/17 03/10/17 03/05/17 Rx Potassium Chloride 20 meq PO QDAY #10 packet 03/08/17 03/10/17 03/05/17 Rx Active Meds: Active Medications Al Hydrox/Mg Hydrox/Simethicone (Alum-Mag Hydrox-Simeth [id number]/5ml) 30 ml PO Q4H PRN PRN Reason: Indigestion Amlodipine Besylate (Norvasc) 10 mg PO DAILY MONE Bisacodyl (Dulcolax) 10 mg AK QDAY PRN PRN Reason: constipation unrelieved by MOM Enoxaparin Sodium (Lovenox) 30 mg SUB-Q QDAY MONE Dextrose/Sodium Chloride (D5ns) 1,000 mls @ 125 mls/hr IV DIRECT MONE Last Admin: 03/10/17 10:17 Dose: 125 mls/hr Dextrose/Sodium Chloride (D5/0.45ns) 1,000 mls @ 125 mls/hr IV DIRECT MONE Ceftriaxone Sodium (Rocephin/Ns 1 Gm/50 Ml) 1 gm in 50 mls @ 100 mls/hr IV Q24HR MONE PRN Reason: Protocol Metronidazole (Flagyl 500 Mg/100 Ml) 500 mg in 100 mls @ 100 mls/hr IV Q8HR MONE Magnesium Hydroxide (Milk Of Magnesia) 30 ml PO Q4H PRN PRN Reason: Constipation Morphine Sulfate (Morphine) 2 mg IV Q4H PRN PRN Reason: Pain, Moderate (4-6) Potassium Chloride (Potassium Chloride) 20 meq PO QDAY MONE Review of Systems Ears, nose, mouth and throat: swelling in throat, odynophagia, neck fullness/ pressure Exam - Constitutional Vitals: Temp Pulse Resp BP Pulse Ox 98.4 F 74 18 148/94 100 03/10/17 09:07 03/10/17 09:07 03/10/17 11:39 03/10/17 09:07 03/10/17 11:39 General appearance: Present: mild distress - EENT Eyes: Present: PERRL, EOM intact ENT: hearing intact, oropharyngeal erythema, other (swollen left oropharynx with erythema) - Neck Neck: Present: supple - Respiratory Respiratory effort: normal Respiratory: bilateral: CTA - Cardiovascular Rhythm: regular Heart Sounds: Present: S1 & S2 - Extremities Extremities: no ischemia, No edema - Abdominal General gastrointestinal: Present: soft, non-tender, non-distended, normal bowel sounds - Musculoskeletal Musculoskeletal: strength equal bilaterally - Psychiatric Psychiatric: appropriate mood/affect, intact judgment & insight - Neurologic Neurologic: CNII-XII intact, moves all extremities Results - Labs CBC & Chem 7: 03/10/17 07:46 03/10/17 07:46 Labs: Laboratory Last Values WBC 14.3 K/mm3 (4.5-11.0) H 03/10/17 07:46 RBC 3.92 M/mm3 (3.65-5.03) 03/10/17 07:46 Hgb 10.2 gm/dl (10.1-14.3) 03/10/17 07:46 Hct 31.8 % (30.3-42.9) 03/10/17 07:46 MCV 81 fl (79-97) 03/10/17 07:46 MCH 26 pg (28-32) L 03/10/17 07:46 MCHC 32 % (30-34) 03/10/17 07:46 RDW 16.3 % (13.2-15.2) H 03/10/17 07:46 Plt Count 265 K/mm3 (140-440) 03/10/17 07:46 Lymph % (Auto) 10.9 % (13.4-35.0) L 03/10/17 07:46 Desha % (Auto) 3.0 % (0.0-7.3) 03/10/17 07:46 Eos % (Auto) 0.1 % (0.0-4.3) 03/10/17 07:46 Baso % (Auto) 0.1 % (0.0-1.8) 03/10/17 07:46 Lymph # 1.6 K/mm3 (1.2-5.4) 03/10/17 07:46 Desha # 0.4 K/mm3 (0.0-0.8) 03/10/17 07:46 Eos # 0.0 K/mm3 (0.0-0.4) 03/10/17 07:46 Baso # 0.0 K/mm3 (0.0-0.1) 03/10/17 07:46 Seg Neutrophils % 85.9 % (40.0-70.0) H 03/10/17 07:46 Seg Neutrophils # 12.3 K/mm3 (1.8-7.7) H 03/10/17 07:46 PT 13.2 Sec. (12.2-14.9) 03/10/17 07:46 INR 1.01 (0.87-1.13) 03/10/17 07:46 APTT 27.0 Sec. (24.2-36.6) 03/10/17 07:46 Sodium 140 mmol/L (137-145) 03/10/17 07:46 Potassium 3.5 mmol/L (3.6-5.0) L 03/10/17 07:46 Chloride 101.4 mmol/L (98-107) 03/10/17 07:46 Carbon Dioxide 24 mmol/L (22-30) 03/10/17 07:46 Anion Gap 18 mmol/L 03/10/17 07:46 BUN 10 mg/dL (7-17) 03/10/17 07:46 Creatinine 0.8 mg/dL (0.7-1.2) 03/10/17 07:46 Estimated GFR > 60 ml/min 03/10/17 07:46 BUN/Creatinine Ratio 12.50 % 03/10/17 07:46 Glucose 88 mg/dL (65-100) 03/10/17 07:46 Lactic Acid 1.00 mmol/L (0.7-2.0) 03/10/17 07:46 Calcium 8.8 mg/dL (8.4-10.2) 03/10/17 07:46 Magnesium 2.10 mg/dL (1.7-2.3) 03/10/17 07:46 Total Bilirubin 0.40 mg/dL (0.1-1.2) 03/10/17 07:46 Direct Bilirubin < 0.2 mg/dL (0-0.2) 03/10/17 07:46 AST 9 units/L (5-40) 03/10/17 07:46 ALT 13 units/L (7-56) 03/10/17 07:46 Alkaline Phosphatase 53 units/L (35-129) 03/10/17 07:46 C-Reactive Protein 5.60 mg/dL (0.00-1.30) H 03/10/17 07:46 Total Protein 7.8 g/dL (6.3-8.2) 03/10/17 07:46 Albumin 3.7 g/dL (3.9-5) L 03/10/17 07:46 Albumin/Globulin Ratio 0.9 % 03/10/17 07:46 Assessment and Plan - Patient Problems (1) Peritonsillar abscess Current Visit: Yes Status: Acute Plan to address problem: Patient has certain amount of distress. Very concerned that patient could possibly have respiratory collapse. Patient is drooling and states that she feels short of breath. We will admit to ICU for close monitoring any event or respiratory collapse. We will start IV antibiotics, IV steroids, ENT consult. We will keep nothing by mouth for now
[2017-03-10] MEDS ORDERED: POTASSIUM CHLORIDE PO SCH (12:00)
[2017-03-10] MEDS ORDERED: LOVENOX SUB-Q SCH (12:00)
[2017-03-10] MEDS: MORPHINE IV PRN ×2 (12:15→18:47)
[2017-03-10] MEDS: DECADRON IV SCH ×2 (12:50→18:37)
[2017-03-10] MEDS: NORVASC PO SCH (12:50)
[2017-03-10] MEDS: ROCEPHIN/NS 1 GM/50 ML 1 GM/50 ML BAG IV SCH (12:51)
[2017-03-10] MEDS: FLAGYL 500 MG/100 ML 500 MG/100 ML BAG IV SCH ×2 (15:24→22:02)
[2017-03-10] MEDS: D5/0.45NS 1,000 ML IV SCH (18:48)
[2017-03-11] MEDS: DECADRON IV SCH ×2 (00:36→06:27)
[2017-03-11 04:38] LABS: Basophils % (Auto) 0.1 % (0.0-1.8); Hematocrit 33.3 % (30.3-42.9); Hemoglobin 10.7 gm/dl (10.1-14.3); Mean Corpuscular HGB Conc 32 % (30-34); Mean Corpuscular Volume 80 fl (79-97); Platelet Count 296 K/mm3 (140-440); Red Blood Count 4.17 M/mm3 (3.65-5.03); Red Cell Distribution Width 15.9 % (13.2-15.2); White Blood Count 13.2 K/mm3 (4.5-11.0)
[2017-03-11 04:40] LABS: Mean Corpuscular Hemoglobin 26 pg (28-32)
[2017-03-11 04:50] LABS: Alanine Aminotransferase 13 units/L (7-56); Albumin 3.5 g/dL (3.9-5); Albumin/Globulin Ratio 0.8 %; Alkaline Phosphatase 54 units/L (35-129); BUN/Creatinine Ratio 11.66; Blood Urea Nitrogen 7 mg/dL (7-17); Calcium 8.7 mg/dL (8.4-10.2); Carbon Dioxide 21 mmol/L (22-30); Glucose 147 mg/dL (65-100); Total Protein 7.8 g/dL (6.3-8.2)
[2017-03-11 04:51] LABS: Anion Gap 19 mmol/L; Chloride 99.1 mmol/L (98-107); Potassium 3.6 mmol/L (3.6-5.0); Sodium 135 mmol/L (137-145)
[2017-03-11] MEDS: MORPHINE IV PRN ×2 (05:05→12:42)
[2017-03-11] MEDS: D5/0.45NS 1,000 ML IV SCH (05:06)
[2017-03-11] MEDS: FLAGYL 500 MG/100 ML 500 MG/100 ML BAG IV SCH (06:26)
[2017-03-11] MEDS ORDERED: LOVENOX SUB-Q SCH ×2 (09:12→10:00)
--- NOTE | 2017-03-11 09:15 | Progress Note ---
Assessment and Plan Assessment and plan: 36-year-old woman who was diagnosed with peritonsillar infection/phlegmon, she was home taking clindamycin, despite taking his father has symptoms got worse. She presented with pain in her throats swelling and drooling. She is admitted for treatment of peritonsillar phlegmon CT of the neck 03/10/70 Inflammatory changes of the palatine tonsil more on the left, there is small coalescence decreased density consistent with phlegmon versus early abscess 1. Sally-tonsillar abscess/phlegmon-does not meet sepsis criteria Appears to be a developing abscess, does not appear to be large enough to drain. Continue IV antibiotics Wean steroids, still unable to swallow, we'll attempt swallowing evaluation later today, 2. Accelerated Hypertension Optimize medications, patient has been counseled about the importance of adherence, she'll also been given resources to obtain affordable medications given that she does not have insurance 3. Hypokalemia repleted and has normalized 4. DVT prophylaxis Lovenox Critical care time 32 minutes History Interval history: She states that pain on swallowing is improved, she denies trouble breathing, she would like to attempt eating lunch today. Hospitalist Physical - Physical exam Narrative exam: General: Patient appears well in no distress HEENT: MMM, EOMI cardiac: S1-S2 heard lungs: clear to auscultation, abdomen: soft, nontender, nondistended bowel sounds positive extremities: no edema clubbing or cyanosis Skin: no rash or lesion Neuro: no focal deficit Psych: appropriate behavior and mood, cognition intact - Constitutional Vitals: Temp Pulse Resp BP Pulse Ox 98.0 F 68 14 134/87 97 03/11/17 04:45 03/11/17 06:20 03/11/17 06:20 03/11/17 06:20 03/11/17 04:40 General appearance: Present: mild distress Results - Labs CBC & Chem 7: 03/11/17 03:58 03/11/17 03:58 Labs: Laboratory Last Values WBC 13.2 K/mm3 (4.5-11.0) H 03/11/17 03:58 RBC 4.17 M/mm3 (3.65-5.03) 03/11/17 03:58 Hgb 10.7 gm/dl (10.1-14.3) 03/11/17 03:58 Hct 33.3 % (30.3-42.9) 03/11/17 03:58 MCV 80 fl (79-97) 03/11/17 03:58 MCH 26 pg (28-32) L 03/11/17 03:58 MCHC 32 % (30-34) 03/11/17 03:58 RDW 15.9 % (13.2-15.2) H 03/11/17 03:58 Plt Count 296 K/mm3 (140-440) 03/11/17 03:58 Lymph % (Auto) 8.7 % (13.4-35.0) L 03/11/17 03:58 Warrick % (Auto) 4.1 % (0.0-7.3) 03/11/17 03:58 Eos % (Auto) 0.0 % (0.0-4.3) 03/11/17 03:58 Baso % (Auto) 0.1 % (0.0-1.8) 03/11/17 03:58 Lymph # 1.2 K/mm3 (1.2-5.4) 03/11/17 03:58 Warrick # 0.5 K/mm3 (0.0-0.8) 03/11/17 03:58 Eos # 0.0 K/mm3 (0.0-0.4) 03/11/17 03:58 Baso # 0.0 K/mm3 (0.0-0.1) 03/11/17 03:58 Seg Neutrophils % 87.1 % (40.0-70.0) H 03/11/17 03:58 Seg Neutrophils # 11.5 K/mm3 (1.8-7.7) H 03/11/17 03:58 PT 13.2 Sec. (12.2-14.9) 03/10/17 07:46 INR 1.01 (0.87-1.13) 03/10/17 07:46 APTT 27.0 Sec. (24.2-36.6) 03/10/17 07:46 Sodium 135 mmol/L (137-145) L 03/11/17 03:58 Potassium 3.6 mmol/L (3.6-5.0) 03/11/17 03:58 Chloride 99.1 mmol/L (98-107) 03/11/17 03:58 Carbon Dioxide 21 mmol/L (22-30) L 03/11/17 03:58 Anion Gap 19 mmol/L 03/11/17 03:58 BUN 7 mg/dL (7-17) 03/11/17 03:58 Creatinine 0.6 mg/dL (0.7-1.2) L 03/11/17 03:58 Estimated GFR > 60 ml/min 03/11/17 03:58 BUN/Creatinine Ratio 11.66 % 03/11/17 03:58 Glucose 147 mg/dL (65-100) H 03/11/17 03:58 Lactic Acid 1.00 mmol/L (0.7-2.0) 03/10/17 07:46 Calcium 8.7 mg/dL (8.4-10.2) 03/11/17 03:58 Magnesium 2.10 mg/dL (1.7-2.3) 03/10/17 07:46 Total Bilirubin 0.30 mg/dL (0.1-1.2) 03/11/17 03:58 Direct Bilirubin < 0.2 mg/dL (0-0.2) 03/10/17 07:46 AST 9 units/L (5-40) 03/11/17 03:58 ALT 13 units/L (7-56) 03/11/17 03:58 Alkaline Phosphatase 54 units/L (35-129) 03/11/17 03:58 C-Reactive Protein 5.60 mg/dL (0.00-1.30) H 03/10/17 07:46 Total Protein 7.8 g/dL (6.3-8.2) 03/11/17 03:58 Albumin 3.5 g/dL (3.9-5) L 03/11/17 03:58 Albumin/Globulin Ratio 0.8 % 03/11/17 03:58
[2017-03-11] MEDS: NORVASC PO SCH (09:54)
[2017-03-11] MEDS ORDERED: DECADRON PO SCH (10:00)
[2017-03-11] MEDS: ROCEPHIN/NS 1 GM/50 ML 1 GM/50 ML BAG IV SCH (12:34)
--- NOTE | 2017-03-11 12:34 | Discharge Summary ---
Providers - Providers Date of Admission: 03/10/17 12:57 Attending physician: MANOHAR QUINN MD Primary care physician: TUBE TESTER Hospitalization Condition: Stable Procedures: CT of the neck 03/10/70 Inflammatory changes of the palatine tonsil more on the left, there is small coalescence decreased density consistent with phlegmon versus ea Hospital course: 36-year-old woman who was diagnosed with peritonsillar infection/phlegmon, she was home taking clindamycin, despite taking his father has symptoms got worse. She presented with pain in her throats swelling and drooling. She is admitted for treatment of peritonsillar phlegmon. She was treated with IV antibiotics, and she clinically improved. Initially she could not swallow and she was drooling even her own saliva and there was concern for airway obstruction, however after receiving IV antibiotics and clinically improved. She had a bedside swallow evaluation was able to swallow. Therefore she was transitioned to oral antibiotics of which was given a 14 day course of. 4 accelerated hypertension medication optimized, serum potassium was noted to be low and was repleted. Patient fortunately clinically improved sooner than expected and was discharged home in improved condition rly abscess Discharge diagnoses 1. Peritonsillar abscess/phlegmon 2. Accelerated hypertension 3. Hypokalemia Disposition: DISCHARGED TO HOME OR SELFCARE Time spent for discharge: 35 minutes Core Measure Documentation - Palliative Care Palliative Care/ Comfort Measures: Not Applicable - Core Measures Any of the following diagnoses?: none Exam - Constitutional Vitals: Temp Pulse Resp BP Pulse Ox 98.0 F 70 13 142/90 98 03/11/17 04:45 03/11/17 10:30 03/11/17 10:30 03/11/17 10:30 03/11/17 10:30 General appearance: Present: no acute distress, well-nourished - EENT Eyes: Present: PERRL ENT: hearing intact, clear oral mucosa - Neck Neck: Present: supple, normal ROM - Respiratory Respiratory effort: normal Respiratory: bilateral: CTA - Cardiovascular Heart Sounds: Present: S1 & S2. Absent: rub, click - Extremities Extremities: pulses symmetrical, No edema Peripheral Pulses: within normal limits - Abdominal General gastrointestinal: Present: soft, non-tender, non-distended, normal bowel sounds Female genitourinary: Present: normal - Integumentary Integumentary: Present: clear, warm, dry - Musculoskeletal Musculoskeletal: gait normal, strength equal bilaterally - Psychiatric Psychiatric: appropriate mood/affect, intact judgment & insight - Neurologic Neurologic: CNII-XII intact, moves all extremities Plan Follow up with: PRIMARY CARE,MD [Primary Care Provider] - 7 Days [facility] [Outside] - 7 Days Prescriptions: Acetaminophen/Codeine [Tylenol /Codeine # 3 tab] 1 tab PO Q6H PRN #12 tab PRN Reason: Sore Throat amLODIPine [Norvasc] 10 mg PO DAILY #30 tablet Amoxicillin/K Clav Tab [Augmentin 875 mg] 1 tab PO Q12HR #28 tab Benzocaine/Menthol [Cepacol Sore Throat Lozenge] 1 each MM Q4H PRN #18 lozenge PRN Reason: Sore Throat Lisinopril [Zestril TAB] 20 mg PO QDAY #30 tablet
[2017-03-11 13:19] VITALS: BP 143/90
== END 2017-03-11 14:23 | disposition home or self-care (01) | DRG 153 ==
LOC: ED 05:02 → CC1 12:57
PROVIDERS: ADMIT Internal Medicine; ATTEND Internal Medicine
DX: J36 Peritonsillar abscess (principal); I10 Essential (primary) hypertension; E87.6 Hypokalemia; F17.200 Nicotine dependence, unspecified, uncomplicated; J02.9 Acute pharyngitis, unspecified; D72.829 Elevated white blood cell count, unspecified; Z91.040 Latex allergy status; Z82.49 Family history of ischemic heart disease and other diseases of the circulatory system
CPT/HCPCS: 36415; 70491; 80048; 80053; 80074; 82140; 83735; 85025; 85610; 85730; 86140; 87040; 96361; 96365; 96375; 99406; J0360; J0696; J1100; J1200; J1650; J2270; J2543; J2930; J3480; J7030; J7042; J7512; J8540; Q0163; Q9967

== ENCOUNTER 2017-04-23 04:12 | Emergency (ER) | payer SELFPAY ==
[2017-04-23 06:58] LABS: Bilirubin,Urine NEG (Negative); Blood,Urine NEG (Negative); Ketones,Urine NEG (Negative); Leukocyte Esterase,Urine LG (Negative); Mucus,Urine FEW /HPF; Nitrite,Urine NEG (Negative); Protein,Urine <15 mg/dL mg/dL (Negative); Urobilinogen,Urine < 2.0 mg/dL (<2.0)
--- NOTE | 2017-04-23 07:25 | Emergency Department Report ---
ED Female HPI - General Chief complaint: Urogenital-Female Stated complaint: POSS YEAST INFECTION Time Seen by Provider: 04/23/17 07:12 Source: patient Mode of arrival: Ambulatory Limitations: No Limitations - History of Present Illness Initial comments: Patient comes in to the ER today with complaints of a yeast infection. Patient states she was seen at another facility and given Rocephin intramuscularly and states that she got a yeast infection from that. She was treated with a single dose of Diflucan and came in today because she is not sure if it's working. Patient states that she was tested for STDs but that they did not have results back at this time. Patient further notes that she usually gets seasonal infections from this. -: days(s) (1) - Related Data Previous Rx's Medication Instructions Recorded Last Taken Type Acetaminophen/Codeine [Tylenol 1 tab PO Q6H PRN #12 tab 03/11/17 Unknown Rx /Codeine # 3 tab] Amoxicillin/K Clav Tab [Augmentin 1 tab PO Q12HR #28 tab 03/11/17 Unknown Rx 875 mg] Benzocaine/Menthol [Cepacol Sore 1 each MM Q4H PRN #18 lozenge 03/11/17 Unknown Rx Throat Lozenge] Lisinopril [Zestril TAB] 20 mg PO QDAY #30 tablet 03/11/17 Unknown Rx amLODIPine [Norvasc] 10 mg PO DAILY #30 tablet 03/11/17 Unknown Rx Fluconazole [Diflucan TAB] 150 mg PO DAILY #3 tablet 04/23/17 Unknown Rx Allergies Allergy/AdvReac Type Severity Reaction Status Date / Time latex AdvReac Itching Verified 03/08/17 10:22 ED Review of Systems ROS: Stated complaint: POSS YEAST INFECTION Other details as noted in HPI Constitutional: denies: chills, fever Eyes: denies: eye pain, eye discharge, vision change ENT: denies: ear pain, throat pain Respiratory: denies: cough, shortness of breath, wheezing Cardiovascular: denies: chest pain, palpitations Endocrine: no symptoms reported Gastrointestinal: denies: abdominal pain, nausea, vomiting, diarrhea Genitourinary: other (vaginal irritation). denies: urgency, dysuria, discharge Musculoskeletal: denies: back pain, joint swelling, arthralgia Skin: denies: rash, lesions Neurological: denies: headache, weakness, paresthesias Psychiatric: denies: anxiety, depression Hematological/Lymphatic: denies: easy bleeding, easy bruising ED Past Medical Hx - Past Medical History Previous Medical History?: Yes Hx Hypertension: Yes Hx Asthma: Yes (pregancy) Additional medical history: TONSILITIS - Surgical History Past Surgical History?: No - Social History Smoking Status: Never Smoker Substance Use Type: None - Medications Home Medications: Home Medications Medication Instructions Recorded Confirmed Last Taken Type Acetaminophen/Codeine [Tylenol 1 tab PO Q6H PRN #12 tab 03/11/17 Unknown Rx /Codeine # 3 tab] Amoxicillin/K Clav Tab [Augmentin 1 tab PO Q12HR #28 tab 03/11/17 Unknown Rx 875 mg] Benzocaine/Menthol [Cepacol Sore 1 each MM Q4H PRN #18 lozenge 03/11/17 Unknown Rx Throat Lozenge] Lisinopril [Zestril TAB] 20 mg PO QDAY #30 tablet 03/11/17 Unknown Rx amLODIPine [Norvasc] 10 mg PO DAILY #30 tablet 03/11/17 Unknown Rx Fluconazole [Diflucan TAB] 150 mg PO DAILY #3 tablet 04/23/17 Unknown Rx ED Physical Exam - General Limitations: No Limitations General appearance: alert, in no apparent distress - Head Head exam: Present: atraumatic, normocephalic - Eye Eye exam: Present: normal appearance - ENT ENT exam: Present: mucous membranes moist - Neck Neck exam: Present: normal inspection - Respiratory Respiratory exam: Present: normal lung sounds bilaterally. Absent: respiratory distress - Cardiovascular Cardiovascular Exam: Present: regular rate, normal rhythm. Absent: systolic murmur, diastolic murmur, rubs, gallop - GI/Abdominal GI/Abdominal exam: Present: soft, normal bowel sounds. Absent: distended, tenderness, guarding - External exam: Present: erythema, other (bilateral labial vaginal irritation) - Extremities Exam Extremities exam: Present: normal inspection - Back Exam Back exam: Present: normal inspection - Neurological Exam Neurological exam: Present: alert, oriented X3 - Psychiatric Psychiatric exam: Present: normal affect, normal mood - Skin Skin exam: Present: warm, dry, intact, normal color. Absent: rash ED Course Vital Signs 04/23/17 04:28 Temperature 98.4 F Pulse Rate 92 H Respiratory 72 H Rate Blood Pressure 166/107 O2 Sat by Pulse 100 Oximetry ED Medical Decision Making - Lab Data Lab Results 04/23/17 Range/Units Unknown Urine Color Yellow (Yellow) Urine Turbidity Slightly-cloudy (Clear) Urine pH 6.0 (5.0-7.0) Ur Specific [place] 1.018 (1.003-1.030) Urine Protein <15 mg/dl (Negative) mg/dL Urine Glucose (UA) Neg (Negative) mg/dL Urine Ketones Neg (Negative) mg/dL Urine Blood Neg (Negative) Urine Nitrite Neg (Negative) Urine Bilirubin Neg (Negative) Urine Urobilinogen < 2.0 (<2.0) mg/dL Ur Leukocyte Esterase Lg (Negative) Urine WBC (Auto) 71.0 H (0.0-6.0) /HPF Urine RBC (Auto) 26.0 (0.0-6.0) /HPF U Epithel Cells (Auto) 14.0 H (0-13.0) /HPF Urine Mucus Few /HPF Urine Yeast (Budding) 2+ /HPF Urine HCG, Qual Negative (Negative) - Medical Decision Making Patient is nontoxic and hemodynamically stable. Patient apparently has recently had STD testing as well as been treated for such. I see no purpose in repeating such testing at this time since I was only 1 day away. We will treat her yeast infection at this time and she is to follow up with the previously seen in clinic for further test results. Critical care attestation.: If time is entered above; I have spent that time in minutes in the direct care of this critically ill patient, excluding procedure time. ED Disposition Clinical Impression: Sadia vaginitis Disposition: - TO HOME OR SELFCARE Is pt being admited?: No Does the pt Need Aspirin: No Condition: Good Instructions: Vulvovaginal Candidiasis (ED) Prescriptions: Fluconazole [Diflucan TAB] 150 mg PO DAILY #3 tablet Referrals: PRIMARY CARE, [Primary Care Provider] - 3-5 Days Time of Disposition: 07:32
[2017-04-23 07:47] VITALS: BP 128/70
== END 2017-04-23 07:46 | disposition home or self-care (01) ==
LOC: ED 04:12
DX: B37.3 Candidiasis of vulva and vagina (principal); I10 Essential (primary) hypertension
CPT/HCPCS: 81001; 81025; 99283

== ENCOUNTER 2018-02-18 22:07 | Emergency (ER) | payer OTHER ==
[2018-02-18 22:30] VITALS: BP 149/98
--- NOTE | 2018-02-19 01:11 | Emergency Department Report ---
ED Female HPI - General Chief complaint: Urogenital-Female Stated complaint: YEAST INFECTION Time Seen by Provider: 02/19/18 01:10 Source: patient Mode of arrival: Ambulatory Limitations: No Limitations - History of Present Illness Initial comments: This is a 37-year-old female who was previously unknown to me. She reports being prescribed Bactrim last week for a possible urinary tract infection. She reports that after taking this medication she developed a "yeast infection." She describes a vaginal discharge and smell. She has no urinary symptoms. She reports that she is not . MD Complaint: vaginal discharge -: Gradual, days(s) Radiation: non-radiating Severity: mild Quality: sharp Consistency: constant Improves with: none Worsens with: none Are you Now?: No Associated Symptoms: vaginal discharge. denies: vaginal bleeding, abdominal pain, nausea/vomiting, fever/chills, headaches, loss of appetite, dysuria, hematuria, rash, seizure, shortness of breath, syncope, weakness - Related Data Sexually active: Yes Previous Rx's Medication Instructions Recorded Last Taken Type Acetaminophen/Codeine [Tylenol 1 tab PO Q6H PRN #12 tab 03/11/17 Unknown Rx /Codeine # 3 tab] Amoxicillin/K Clav Tab [Augmentin 1 tab PO Q12HR #28 tab 03/11/17 Unknown Rx 875 mg] Benzocaine/Menthol [Cepacol Sore 1 each MM Q4H PRN #18 lozenge 03/11/17 Unknown Rx Throat Lozenge] Lisinopril [Zestril TAB] 20 mg PO QDAY #30 tablet 03/11/17 Unknown Rx amLODIPine [Norvasc] 10 mg PO DAILY #30 tablet 03/11/17 Unknown Rx Fluconazole [Diflucan TAB] 150 mg PO DAILY #3 tablet 04/23/17 Unknown Rx Fluconazole [Diflucan TAB] 150 mg PO ONCE #2 tablet 02/19/18 Unknown Rx metroNIDAZOLE [Flagyl] 500 mg PO Q12HR #14 tab 02/19/18 Unknown Rx Allergies Allergy/AdvReac Type Severity Reaction Status Date / Time latex AdvReac Itching Verified 03/08/17 10:22 ED Review of Systems ROS: Stated complaint: YEAST INFECTION Other details as noted in HPI Comment: All other systems reviewed and negative ED Past Medical Hx - Past Medical History Hx Hypertension: Yes Hx Asthma: Yes (pregancy) Additional medical history: TONSILITIS - Social History Smoking Status: Never Smoker Substance Use Type: None - Medications Home Medications: Home Medications Medication Instructions Recorded Confirmed Last Taken Type Acetaminophen/Codeine [Tylenol 1 tab PO Q6H PRN #12 tab 03/11/17 Unknown Rx /Codeine # 3 tab] Amoxicillin/K Clav Tab [Augmentin 1 tab PO Q12HR #28 tab 03/11/17 Unknown Rx 875 mg] Benzocaine/Menthol [Cepacol Sore 1 each MM Q4H PRN #18 lozenge 03/11/17 Unknown Rx Throat Lozenge] Lisinopril [Zestril TAB] 20 mg PO QDAY #30 tablet 03/11/17 Unknown Rx amLODIPine [Norvasc] 10 mg PO DAILY #30 tablet 03/11/17 Unknown Rx Fluconazole [Diflucan TAB] 150 mg PO DAILY #3 tablet 04/23/17 Unknown Rx Fluconazole [Diflucan TAB] 150 mg PO ONCE #2 tablet 02/19/18 Unknown Rx metroNIDAZOLE [Flagyl] 500 mg PO Q12HR #14 tab 02/19/18 Unknown Rx ED Physical Exam - General Limitations: No Limitations General appearance: alert, in no apparent distress - Head Head exam: Present: atraumatic, normocephalic - Eye Eye exam: Present: normal appearance, EOMI. Absent: nystagmus - ENT ENT exam: Present: normal exam, normal orophraynx, mucous membranes moist, normal external ear exam - Neck Neck exam: Present: normal inspection, full ROM - Respiratory Respiratory exam: Present: normal lung sounds bilaterally. Absent: respiratory distress - Cardiovascular Cardiovascular Exam: Present: regular rate, normal rhythm, normal heart sounds. Absent: systolic murmur, diastolic murmur, rubs, gallop - GI/Abdominal GI/Abdominal exam: Present: soft, normal bowel sounds. Absent: distended, tenderness, guarding, rebound, rigid, pulsatile mass - External exam: Present: normal external exam Speculum exam: Present: normal speculum exam, cervical discharge. Absent: vaginal bleeding, foreign body Bi-manual exam: Present: normal bi-manual exam, other (chaperonne: Katherine Dial). Absent: cervical motion tendernes, adnexal tenderness, adnexal mass, uterine enlargement, uterine tenderness - Extremities Exam Extremities exam: Present: normal inspection, full ROM, normal capillary refill. Absent: tenderness, pedal edema, joint swelling, calf tenderness - Back Exam Back exam: Present: normal inspection, full ROM. Absent: tenderness, CVA tenderness (R), paraspinal tenderness, vertebral tenderness - Neurological Exam Neurological exam: Present: alert, oriented X3, CN II-XII intact, normal gait, other (Extraocular movements intact. Tongue midline. No facial droop. Facial sensation intact to light touch in the V1, V2, V3 distribution bilaterally. 5 and 5 strength in 4 extremities.. Sensation is intact to light touch in 4 extremities.). Absent: motor sensory deficit - Psychiatric Psychiatric exam: Present: normal affect, normal mood - Skin Skin exam: Present: warm, dry, intact, normal color. Absent: rash ED Course Vital Signs 02/18/18 02/18/18 22:17 22:48 Temperature 98.5 F 98.5 F Pulse Rate 90 90 Respiratory 18 18 Rate Blood Pressure 149/98 149/98 O2 Sat by Pulse 100 100 Oximetry - Reevaluation(s) Reevaluation #1: 02/19/18 01:47 Differential diagnosis, including not limited to: Vaginosis, bacterial vaginosis , trichomoniasis Assessment and plan: 37-year-old female with greenish yellow vaginal discharge. Does not have the appearance or presentation of Sadia infection. Urinalysis is pending but has no urinary symptoms. Reports that she is not . Nonspecific vaginitis at this time, maybe BV. Awaiting urinalysis and wet prep results. Reevaluation #2: 02/19/18 02:06 Urinalysis suggests asymptomatic bacteriuria/cystitis. Patient is also found to be . She has no abdominal pain or tenderness. She does not want any laboratory studies to confirm or pelvic ultrasound. She indicates she is going to go to an clinic. Critical care attestation.: If time is entered above; I have spent that time in minutes in the direct care of this critically ill patient, excluding procedure time. ED Disposition Clinical Impression: Vaginitis Qualifiers: Chronicity: acute Qualified Code(s): N76.0 - Acute vaginitis Disposition: - TO HOME OR SELFCARE Is pt being admited?: No Does the pt Need Aspirin: No Condition: Stable Instructions: Vaginitis (ED) Additional Instructions: Cultures were sent today, results will be available in the next 3-5 days. Take the medications as directed. 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 Does not consume alcohol. Return to the ER right away with any pain, shortness of breath, nausea, vomiting, fevers or chills, intractable nausea or vomiting. Referrals: PRIMARY CAREMD [Primary Care Provider] - 3-5 Days [facility] [Provider Group] - 3-5 Days [facility] [Provider Group] - 3-5 Days [facility] [Provider Group] - 3-5 Days
[2018-02-19 01:55] LABS: HCG Qualitative,Urine Positive (Negative)
[2018-02-19 01:56] LABS: Bilirubin,Urine NEG (Negative); Blood,Urine MOD (Negative); Color,Urine Yellow (Yellow); Mucus,Urine FEW /HPF; Urobilinogen,Urine < 2.0 mg/dL (<2.0)
[2018-02-19 01:58] LABS: WBC,Urine > 182.0 /HPF (0.0-6.0)
== END 2018-02-19 02:32 | disposition home or self-care (01) ==
LOC: ED 22:07
DX: N76.0 Acute vaginitis (principal); I10 Essential (primary) hypertension; Z91.040 Latex allergy status
CPT/HCPCS: 81001; 81025; 87210; 87591; 99284

== ENCOUNTER 2018-08-05 20:48 | Emergency (ER) | payer SELFPAY ==
[2018-08-05 20:57] VITALS: BP 153/98
[2018-08-06] MEDS ORDERED: NORCO 5/325 ONE (00:19)
[2018-08-06] MEDS ORDERED: NORCO 5/325 PO ONE (00:20)
[2018-08-06] MEDS ORDERED: LOVENOX SUB-Q ONE (02:49)
--- NOTE | 2018-08-06 03:05 | Emergency Department Report ---
ED Extremity Problem HPI - General Chief complaint: Extremity Injury, Lower Stated complaint: RT LEG PAIN Time Seen by Provider: 08/06/18 00:20 Source: patient Mode of arrival: Ambulatory Limitations: No Limitations - Related Data Previous Rx's Medication Instructions Recorded Last Taken Type Acetaminophen/Codeine [Tylenol 1 tab PO Q6H PRN #12 tab 03/11/17 Unknown Rx /Codeine # 3 tab] Amoxicillin/K Clav Tab [Augmentin 1 tab PO Q12HR #28 tab 03/11/17 Unknown Rx 875 mg] Benzocaine/Menthol [Cepacol Sore 1 each MM Q4H PRN #18 lozenge 03/11/17 Unknown Rx Throat Lozenge] Lisinopril [Zestril TAB] 20 mg PO QDAY #30 tablet 03/11/17 Unknown Rx amLODIPine [Norvasc] 10 mg PO DAILY #30 tablet 03/11/17 Unknown Rx Fluconazole [Diflucan TAB] 150 mg PO DAILY #3 tablet 04/23/17 Unknown Rx Fluconazole [Diflucan TAB] 150 mg PO ONCE #2 tablet 02/19/18 Unknown Rx metroNIDAZOLE [Flagyl] 500 mg PO Q12HR #14 tab 02/19/18 Unknown Rx Ketorolac [Toradol] 10 mg PO Q6H PRN #20 tablet 08/06/18 Unknown Rx Allergies Allergy/AdvReac Type Severity Reaction Status Date / Time clindamycin Allergy Unknown Verified 08/05/18 21:35 latex AdvReac Itching Verified 03/08/17 10:22 ED Review of Systems ROS: Stated complaint: RT LEG PAIN Other details as noted in HPI ED Past Medical Hx - Past Medical History Hx Hypertension: Yes Hx Asthma: Yes (pregancy) Additional medical history: TONSILITIS - Social History Smoking Status: Never Smoker Substance Use Type: None - Medications Home Medications: Home Medications Medication Instructions Recorded Confirmed Last Taken Type Acetaminophen/Codeine [Tylenol 1 tab PO Q6H PRN #12 tab 03/11/17 Unknown Rx /Codeine # 3 tab] Amoxicillin/K Clav Tab [Augmentin 1 tab PO Q12HR #28 tab 03/11/17 Unknown Rx 875 mg] Benzocaine/Menthol [Cepacol Sore 1 each MM Q4H PRN #18 lozenge 03/11/17 Unknown Rx Throat Lozenge] Lisinopril [Zestril TAB] 20 mg PO QDAY #30 tablet 03/11/17 Unknown Rx amLODIPine [Norvasc] 10 mg PO DAILY #30 tablet 03/11/17 Unknown Rx Fluconazole [Diflucan TAB] 150 mg PO DAILY #3 tablet 04/23/17 Unknown Rx Fluconazole [Diflucan TAB] 150 mg PO ONCE #2 tablet 02/19/18 Unknown Rx metroNIDAZOLE [Flagyl] 500 mg PO Q12HR #14 tab 02/19/18 Unknown Rx Ketorolac [Toradol] 10 mg PO Q6H PRN #20 tablet 08/06/18 Unknown Rx ED Physical Exam - General Limitations: No Limitations General appearance: alert, in no apparent distress - Head Head exam: Present: atraumatic, normocephalic - Eye Eye exam: Present: normal appearance - ENT ENT exam: Present: mucous membranes moist - Neck Neck exam: Present: normal inspection - Respiratory Respiratory exam: Present: normal lung sounds bilaterally. Absent: respiratory distress - Cardiovascular Cardiovascular Exam: Present: regular rate, normal rhythm. Absent: systolic murmur, diastolic murmur, rubs, gallop - GI/Abdominal GI/Abdominal exam: Present: soft, normal bowel sounds - Extremities Exam Extremities exam: Present: normal inspection, tenderness - Expanded Lower Extremity Exam Right Hip exam: Present: full ROM. Absent: tenderness, swelling Upper Leg exam: Present: tenderness, swelling Lower Leg exam: Present: tenderness, swelling, ecchymosis. Absent: palpable cord, Adán's sign Foot/Toe exam: Absent: deformity, crepidus, puncture wound, foreign body, calcaneal tenderness, tenderness at base of 5th metatarsal Neuro vascular tendon exam: Absent: pulse deficit, abnormal cap refill (normal light touch sensation in sharp pain sensation) Gait: Positive: antalgic - Back Exam Back exam: Present: normal inspection. Absent: paraspinal tenderness, vertebral tenderness, rash noted - Neurological Exam Neurological exam: Present: alert, oriented X3, CN II-XII intact, reflexes normal. Absent: motor sensory deficit - Psychiatric Psychiatric exam: Present: normal affect, normal mood - Skin Skin exam: Present: warm, dry, intact, normal color. Absent: rash ED Course Vital Signs 08/05/18 08/05/18 08/06/18 20:55 21:31 03:15 Temperature 98.3 F 98.3 F Pulse Rate 88 88 76 Respiratory 16 18 16 Rate Blood Pressure 153/98 153/98 O2 Sat by Pulse 99 99 99 Oximetry Critical care attestation.: If time is entered above; I have spent that time in minutes in the direct care of this critically ill patient, excluding procedure time. ED Disposition Clinical Impression: Paresthesia and pain of right extremity, Myalgia Disposition: TO HOME OR SELFCARE Is pt being admited?: No Does the pt Need Aspirin: No Condition: Stable Additional Instructions: Treated with Lovenox for prophylaxis and will return in the morning for venous Doppler of the right lower extremity. Prescriptions: Ketorolac [Toradol] 10 mg PO Q6H PRN #20 tablet PRN Reason: Pain Referrals: PRIMARY CARE, [Primary Care Provider] - 3-5 Days [facility] [Provider Group] - 24 Hours [facility] [Provider Group] - 24 Hours Forms: Accompanied Note, Work/School Release Form(ED)
== END 2018-08-06 03:15 | disposition home or self-care (01) ==
LOC: ED 20:48
DX: M79.10 Myalgia, unspecified site (principal); I10 Essential (primary) hypertension; J45.909 Unspecified asthma, uncomplicated; Z88.1 Allergy status to other antibiotic agents; Z91.040 Latex allergy status
CPT/HCPCS: 36415; 85379; 96372; 99283; J1650

== ENCOUNTER 2018-08-06 13:40 | Outpatient (CLI) | payer OTHER ==
--- NOTE | 2018-08-06 17:05 | Vascular Lab Report ---
Right Lower Extremity Venous Duplex Study: Reason for Exam: Pain and swelling of the right lower extremity. Comments on the Right: All veins visualized are freely compressible without evidence of internal echogenicity. Flow is spontaneous and phasic throughout. No evidence of acute or chronic thrombus is seen in any of the vessels visualized. A soft tissue change in the right knee area is consistent with a Madsen's cyst. Comments on the Left: A limited duplex study was done of the proximal veins of the left lower extremity. All veins visualized are freely compressible without evidence of internal echogenicity. Flow is spontaneous and phasic throughout. No evidence of acute or chronic thrombus is seen in any of the vessels visualized. Impression: No evidence of acute or chronic deep venous thrombosis in the right lower extremity. A soft tissue change in the right knee area is consistent with a Madsen's cyst.
== END 2018-08-06 13:41 | disposition home or self-care (01) ==
LOC: VAS 13:40
PROVIDERS: ATTEND Physician Assistant
DX: R22.41 Localized swelling, mass and lump, right lower limb (principal); M79.89 Other specified soft tissue disorders; I10 Essential (primary) hypertension; J45.909 Unspecified asthma, uncomplicated; Z88.1 Allergy status to other antibiotic agents

== ENCOUNTER 2019-01-24 16:14 | Emergency (ER) | payer OTHER ==
--- NOTE | 2019-01-24 16:36 | Emergency Department Report ---
Chief Complaint: Upper Respiratory Infection Stated Complaint: SOB Time Seen by Provider: 01/24/19 16:34 - HPI History of Present Illness: This is a 38 y.o. female that presents with congestion since yesterday. - Exam Vital Signs: Vital Signs 01/24/19 16:33 Temperature 99.0 F Pulse Rate 102 H Respiratory 22 Rate Blood Pressure 158/99 O2 Sat by Pulse 100 Oximetry MSE screening note: Focused history and physical exam performed. Due to findings the following was ordered: ACC for further evaluation. ED Disposition for MSE Condition: Stable
[2019-01-24] MEDS ORDERED: DECADRON IV ONE (20:06)
[2019-01-24] MEDS ORDERED: BENADRYL IV ONE (20:07)
[2019-01-24] MEDS ORDERED: AUGMENTIN 875 MG PO ONE (20:07)
[2019-01-24] MEDS ORDERED: PEPCID IV ONE (20:07)
[2019-01-24] MEDS ORDERED: MOTRIN PO ONE (20:07)
[2019-01-24 20:17] VITALS: BP 159/92
[2019-01-24] MEDS ORDERED: PEPCID ONE (20:26)
[2019-01-24] MEDS ORDERED: BENADRYL PO ONE (20:26)
[2019-01-24] MEDS ORDERED: DECADRON PO ONE (20:32)
[2019-01-24] MEDS ORDERED: PEPCID PO ONE (20:32)
--- NOTE | 2019-01-24 21:50 | Emergency Department Report ---
- General Chief Complaint: Upper Respiratory Infection Stated Complaint: SOB Time Seen by Provider: 01/24/19 16:34 Source: patient Mode of arrival: Ambulatory Limitations: No Limitations - History of Present Illness Initial Comments: This is a 38 y.o. female that presents with congestion since yesterday. symptoms include pain and pressure sore throat , cough clear, there is no sob no wheezing MD Complaint: fever, cough, sore throat Onset/Timin -: days(s) Severity: moderate Severity scale (0 -10): 5 Quality: sharp Consistency: constant Improves With: nothing Worsens With: nothing Context: sick contacts Associated Symptoms: myalgias, rhinorrhea, nasal congestion, sore throat, cough, ear pain. denies: diaphoresis Treatments Prior to Arrival: none - Related Data Previous Rx's Medication Instructions Recorded Last Taken Type Lisinopril [Zestril TAB] 20 mg PO QDAY #30 tablet 03/11/17 Unknown Rx amLODIPine [Norvasc] 10 mg PO DAILY #30 tablet 03/11/17 Unknown Rx Fluconazole [Diflucan TAB] 150 mg PO DAILY #3 tablet 10/23/18 Unknown Rx metroNIDAZOLE [Flagyl] 500 mg PO Q12HR #14 tab 10/23/18 Unknown Rx Azithromycin [Zithromax Z-ANNA] 250 mg PO DAILY #6 tab 01/24/19 Unknown Rx Fluticasone [Flonase] 1 spray NS QDAY #1 bottle 01/24/19 Unknown Rx Ibuprofen 800 mg PO TID PRN #30 tablet 01/24/19 Unknown Rx diphenhydrAMINE [Benadryl CAP] 25 mg PO Q6HR PRN #30 capsule 01/24/19 Unknown Rx predniSONE [Deltasone] 40 mg PO QDAY 5 Days #10 tab 01/24/19 Unknown Rx Allergies Allergy/AdvReac Type Severity Reaction Status Date / Time clindamycin Allergy Unknown Verified 01/24/19 16:15 latex AdvReac Itching Verified 01/24/19 16:15 ED Review of Systems ROS: Stated complaint: SOB Other details as noted in HPI Constitutional: chills, malaise ENT: ear pain, throat pain, congestion, other (sinus pain pressure ) Respiratory: cough Cardiovascular: denies: chest pain, palpitations Endocrine: no symptoms reported Gastrointestinal: denies: abdominal pain, nausea, diarrhea Genitourinary: as per HPI Musculoskeletal: denies: back pain, joint swelling, arthralgia Skin: denies: rash, lesions Neurological: denies: headache, weakness, paresthesias Psychiatric: denies: anxiety, depression Hematological/Lymphatic: denies: easy bleeding, easy bruising ED Past Medical Hx - Past Medical History Hx Hypertension: Yes Hx Asthma: Yes (pregancy) Additional medical history: TONSILITIS-frequent BV - Surgical History Additional Surgical History: Patient has been twice in the past and has 2 living children - Social History Smoking Status: Never Smoker Substance Use Type: None - Medications Home Medications: Home Medications Medication Instructions Recorded Confirmed Last Taken Type Lisinopril [Zestril TAB] 20 mg PO QDAY #30 tablet 03/11/17 Unknown Rx amLODIPine [Norvasc] 10 mg PO DAILY #30 tablet 03/11/17 Unknown Rx Fluconazole [Diflucan TAB] 150 mg PO DAILY #3 tablet 10/23/18 Unknown Rx metroNIDAZOLE [Flagyl] 500 mg PO Q12HR #14 tab 10/23/18 Unknown Rx Azithromycin [Zithromax Z-ANNA] 250 mg PO DAILY #6 tab 01/24/19 Unknown Rx Fluticasone [Flonase] 1 spray NS QDAY #1 bottle 01/24/19 Unknown Rx Ibuprofen 800 mg PO TID PRN #30 tablet 01/24/19 Unknown Rx diphenhydrAMINE [Benadryl CAP] 25 mg PO Q6HR PRN #30 capsule 01/24/19 Unknown Rx predniSONE [Deltasone] 40 mg PO QDAY 5 Days #10 tab 01/24/19 Unknown Rx ED Physical Exam - General Limitations: No Limitations General appearance: alert, in no apparent distress - Head Head exam: Present: atraumatic, normocephalic, normal inspection - Eye Eye exam: Present: normal appearance, PERRL Pupils: Present: normal accommodation - ENT ENT exam: Present: mucous membranes moist - Expanded ENT Exam Expanded Ear exam: Present: other (bilat frontal and maxillary sinus pain to palpation no erythema no swelling ) TM/Canal exam: Erythema: Right TM, Left TM Mouth exam: Absent: trismus Throat exam: Positive: tonsillar erythema, tonsillomegaly, tonsillar exudate, other (no stridor no wheezing ). Negative: R peritonsillar mass, L peritonsillar mass - Neck Neck exam: Present: normal inspection, full ROM, lymphadenopathy. Absent: tenderness, meningismus, thyromegaly - Respiratory Respiratory exam: Present: normal lung sounds bilaterally. Absent: respiratory distress, wheezes, stridor, chest wall tenderness - Cardiovascular Cardiovascular Exam: Present: regular rate, normal rhythm, normal heart sounds. Absent: systolic murmur, diastolic murmur, rubs, gallop - GI/Abdominal GI/Abdominal exam: Present: soft, normal bowel sounds. Absent: distended, tenderness, rebound, bruit, hernia - Rectal Rectal exam: Present: deferred - Extremities Exam Extremities exam: Present: normal inspection, full ROM, normal capillary refill. Absent: tenderness, pedal edema, calf tenderness - Back Exam Back exam: Present: normal inspection, full ROM. Absent: tenderness, CVA tenderness (R), CVA tenderness (L), rash noted - Neurological Exam Neurological exam: Present: alert, oriented X3, CN II-XII intact, normal gait, reflexes normal - Psychiatric Psychiatric exam: Present: normal affect, normal mood - Skin Skin exam: Present: warm, dry, intact, normal color. Absent: rash ED Course Vital Signs 01/24/19 01/24/19 16:33 20:15 Temperature 99.0 F 98.7 F Pulse Rate 102 H 105 H Respiratory 22 16 Rate Blood Pressure 158/99 Blood Pressure 159/92 [Left] O2 Sat by Pulse 100 100 Oximetry ED Medical Decision Making - Medical Decision Making this is uri with pharyngitis, uvulat is midline sinus pressure is improved, plan azithromycin, ibuprofen, benadryl, prednisone, flonase, pt will follow up with pcp in 2-3 days pt verbalized agreement and understanding of discharge plan, pt verbalized agreement and understanding of same. Critical care attestation.: If time is entered above; I have spent that time in minutes in the direct care of this critically ill patient, excluding procedure time. ED Disposition Clinical Impression: Sinusitis Qualifiers: Sinusitis location: maxillary Chronicity: acute Recurrence: non-recurrent Qualified Code(s): J01.00 - Acute maxillary sinusitis, unspecified Pharyngitis Qualifiers: Pharyngitis/tonsillitis etiology: unspecified etiology Qualified Code(s): J02.9 - Acute pharyngitis, unspecified URI (upper respiratory infection) Qualifiers: URI type: unspecified viral URI Qualified Code(s): J06.9 - Acute upper respiratory infection, unspecified Disposition: TO HOME OR SELFCARE Is pt being admited?: No Does the pt Need Aspirin: No Condition: Stable Instructions: Sinusitis (ED), Pharyngitis (ED), Upper Respiratory Infection (ED) Prescriptions: diphenhydrAMINE [Benadryl CAP] 25 mg PO Q6HR PRN #30 capsule PRN Reason: congestion predniSONE [Deltasone] 40 mg PO QDAY 5 Days #10 tab Fluticasone [Flonase] 1 spray NS QDAY #1 bottle Ibuprofen 800 mg PO TID PRN #30 tablet PRN Reason: pain fever Azithromycin [Zithromax Z-ANNA] 250 mg PO DAILY #6 tab Referrals: [facility] [Outside] - 3-5 Days Forms: Work/School Release Form(ED) Time of Disposition: 22:02
== END 2019-01-24 22:21 | disposition home or self-care (01) ==
LOC: ED 16:14
DX: J01.00 Acute maxillary sinusitis, unspecified (principal); J06.9 Acute upper respiratory infection, unspecified; J02.9 Acute pharyngitis, unspecified; I10 Essential (primary) hypertension
CPT/HCPCS: 99283; J1100; J8540

== ENCOUNTER 2019-07-14 17:21 | Emergency (ER) | payer OTHER ==
--- NOTE | 2019-07-14 18:04 | Event Note ---
ED Screening Note ED Screening Note: pt presents with right sided CP under the right breast that began three days ago sharp pains worse with movement states she feels SOB PMHx HTN allergy: latex, clindamycin This initial assessment/diagnostic orders/clinical plan/treatment(s) is/are subject to change based on patients health status, clinical progression and re- assessment by fellow clinical providers in the ED. Further treatment and workup at subsequent clinical providers discretion. Patient/guardian urged not to elope from the ED as their condition may be serious if not clinically assessed and managed. Initial orders include: CP protocol
[2019-07-14 18:05] VITALS: BP 141/95
[2019-07-14 19:20] LABS: Basophils # (Auto) 0.1 K/mm3 (0.0-0.1); Basophils % (Auto) 0.8 % (0.0-1.8); Eosinophils # (Auto) 0.2 K/mm3 (0.0-0.4); Eosinophils % (Auto) 1.8 % (0.0-4.3); Hematocrit 35.1 % (30.3-42.9); Hemoglobin 11.2 gm/dl (10.1-14.3); Lymphocytes # (Auto) 2.4 K/mm3 (1.2-5.4); Lymphocytes % (Auto) 20.9 % (13.4-35.0); Mean Corpuscular HGB Conc 32 % (30-34); Mean Corpuscular Volume 81 fl (79-97); Monocytes # (Auto) 0.6 K/mm3 (0.0-0.8); Monocytes % (Auto) 4.7 % (0.0-7.3); Platelet Count 284 K/mm3 (140-440); Red Blood Count 4.33 M/mm3 (3.65-5.03); Red Cell Distribution Width 16.5 % (13.2-15.2)
[2019-07-14 19:42] LABS: Alanine Aminotransferase 29 units/L (7-56); Albumin 4.3 g/dL (3.9-5); BUN/Creatinine Ratio 13; Blood Urea Nitrogen 9 mg/dL (7-17); Calcium 9.4 mg/dL (8.4-10.2); Hemolysis Index 72
[2019-07-14 20:31] LABS: Bacteria,Urine 1+ /HPF (Negative); Bilirubin,Urine NEG (Negative); Blood,Urine MOD (Negative); Color,Urine Yellow (Yellow); Protein,Urine <15 mg/dL mg/dL (Negative); Urobilinogen,Urine < 2.0 mg/dL (<2.0)
== END 2019-07-14 19:20 | disposition left against medical advice (07) ==
LOC: ED 17:21
DX: R07.89 Other chest pain (principal); Z53.21 Procedure and treatment not carried out due to patient leaving prior to being seen by health care provider
CPT/HCPCS: 36415; 80053; 81001; 83690; 84484; 84703; 85025; 93005; 93010

== ENCOUNTER 2020-03-04 21:53 | Emergency (ER) | payer OTHER ==
[2020-03-04] MEDS ORDERED: ASPIRIN 325 MG TAB PO ONE (22:10)
--- NOTE | 2020-03-04 22:51 | Emergency Department Report ---
ED Chest Pain HPI - General Chief Complaint: Chest Pain Stated Complaint: CHEST PAIN Time Seen by Provider: 03/04/20 22:27 Source: patient Mode of arrival: Ambulatory Limitations: No Limitations - History of Present Illness Initial Comments: Patient is 39 years old female with history of hypertension on amlodipine 10 mg. Patient presented to the ER complaining of right-sided chest pain started this afternoon. Patient described her pain as sharp with no radiation. Patient stated the pain increased with movement and improved with remaining still. Patient denied any fever, chills, cough or shortness of breath. Patient found to have a blood pressure of 194/112. Patient stated that she is compliant with her medication. Headache, weakness numbness or tingling sensation. MD Complaint: chest pain -: This afternoon Onset: during rest Pain Location: right chest Pain Radiation: none Severity: moderate Severity scale (0 -10): 6 Quality: sharp Improves With: remaining still Worsens With: movement - Related Data Previous Rx's Medication Instructions Recorded Last Taken Type amLODIPine 10 mg PO DAILY #30 tablet 03/11/17 Unknown Rx lisinopriL [Zestril TAB] 20 mg PO QDAY #30 tablet 03/11/17 Unknown Rx Fluconazole [Diflucan TAB] 150 mg PO DAILY #3 tablet 10/23/18 Unknown Rx metroNIDAZOLE [Flagyl] 500 mg PO Q12HR #14 tab 10/23/18 Unknown Rx Azithromycin [Zithromax Z-ANNA] 250 mg PO DAILY #6 tab 01/24/19 Unknown Rx Fluticasone [Flonase] 1 spray NS QDAY #1 bottle 01/24/19 Unknown Rx Ibuprofen [Ibuprofen 800] 800 mg PO TID PRN #30 tablet 01/24/19 Unknown Rx diphenhydrAMINE [Benadryl CAP] 25 mg PO Q6HR PRN #30 capsule 01/24/19 Unknown Rx predniSONE [Deltasone] 40 mg PO QDAY 5 Days #10 tab 01/24/19 Unknown Rx Allergies Allergy/AdvReac Type Severity Reaction Status Date / Time clindamycin Allergy Unknown Verified 01/24/19 16:15 latex AdvReac Itching Verified 01/24/19 16:15 Heart Score - HEART Score History: Slightly suspicious EKG: Normal Age: < 45 Risk factors: 1-2 risk factors Troponin: < normal limit HEART Score: 1 - Critical Actions Critical Actions: 0-3 pts:0.9-1.7%risk of adverse cardiac event.Candidate for discharge ED Review of Systems ROS: Stated complaint: CHEST PAIN Other details as noted in HPI Comment: All other systems reviewed and negative Constitutional: denies: chills, fever Respiratory: denies: cough, shortness of breath, SOB with exertion, wheezing Cardiovascular: chest pain. denies: palpitations Gastrointestinal: denies: abdominal pain, nausea, vomiting, diarrhea, constipation, hematemesis, melena Musculoskeletal: denies: back pain Neurological: denies: headache, weakness, numbness, paresthesias, confusion ED Past Medical Hx - Past Medical History Hx Hypertension: Yes Hx Asthma: Yes (pregancy) Additional medical history: TONSILITIS-frequent BV - Surgical History Additional Surgical History: Patient has been twice in the past and has 2 living children - Social History Smoking Status: Current Some Day Smoker Substance Use Type: Alcohol - Medications Home Medications: Home Medications Medication Instructions Recorded Confirmed Last Taken Type amLODIPine 10 mg PO DAILY #30 tablet 03/11/17 Unknown Rx lisinopriL [Zestril TAB] 20 mg PO QDAY #30 tablet 03/11/17 Unknown Rx Fluconazole [Diflucan TAB] 150 mg PO DAILY #3 tablet 10/23/18 Unknown Rx metroNIDAZOLE [Flagyl] 500 mg PO Q12HR #14 tab 10/23/18 Unknown Rx Azithromycin [Zithromax Z-ANNA] 250 mg PO DAILY #6 tab 01/24/19 Unknown Rx Fluticasone [Flonase] 1 spray NS QDAY #1 bottle 01/24/19 Unknown Rx Ibuprofen [Ibuprofen 800] 800 mg PO TID PRN #30 tablet 01/24/19 Unknown Rx diphenhydrAMINE [Benadryl CAP] 25 mg PO Q6HR PRN #30 capsule 01/24/19 Unknown Rx predniSONE [Deltasone] 40 mg PO QDAY 5 Days #10 tab 01/24/19 Unknown Rx ED Physical Exam - General Limitations: No Limitations General appearance: alert, in no apparent distress - Head Head exam: Present: atraumatic, normocephalic, normal inspection - Eye Eye exam: Present: normal appearance - ENT ENT exam: Present: normal exam, normal orophraynx, mucous membranes moist - Neck Neck exam: Present: normal inspection, full ROM. Absent: tenderness, meningismus, lymphadenopathy, thyromegaly - Respiratory Respiratory exam: Present: normal lung sounds bilaterally, chest wall tenderness - Cardiovascular Cardiovascular Exam: Present: regular rate, normal rhythm, normal heart sounds - GI/Abdominal GI/Abdominal exam: Present: soft, normal bowel sounds. Absent: distended, tenderness, guarding, rebound, rigid, organomegaly, mass, bruit, pulsatile mass, hernia - Extremities Exam Extremities exam: Present: normal inspection, full ROM, normal capillary refill. Absent: pedal edema, calf tenderness - Back Exam Back exam: Present: normal inspection, full ROM. Absent: CVA tenderness (R), CVA tenderness (L) - Neurological Exam Neurological exam: Present: alert, oriented X3, CN II-XII intact, normal gait, reflexes normal - Psychiatric Psychiatric exam: Present: normal mood - Skin Skin exam: Present: warm, normal color ED Course Vital Signs 03/04/20 03/04/20 03/04/20 22:09 22:51 23:00 Temperature 98.4 F Pulse Rate 83 78 82 Respiratory 18 17 18 Rate Blood Pressure 194/112 163/100 163/100 O2 Sat by Pulse 99 100 99 Oximetry 03/05/20 00:17 Temperature Pulse Rate 80 Respiratory 15 Rate Blood Pressure O2 Sat by Pulse 99 Oximetry ED Medical Decision Making - Lab Data Result diagrams: 03/04/20 22:33 03/04/20 22:33 - EKG Data -: EKG Interpreted by Nv EKG shows normal: sinus rhythm Rate: normal - EKG Data Interpretation: no acute changes - Radiology Data Radiology results: report reviewed - Medical Decision Making Patient is 39 years old female with history of hypertension on amlodipine 10 mg. Patient presented to the ER complaining of right-sided chest pain started this afternoon. Patient described her pain as sharp with no radiation. Patient stated the pain increased with movement and improved with remaining still. Patient denied any fever, chills, cough or shortness of breath. Patient found to have a blood pressure of 194/112. Patient stated that she is compliant with her medication. Headache, weakness numbness or tingling sensation. EKG showed no ST elevation. Chest x-ray is unremarkable. Labs reviewed and is negative for acute finding. Given a high blood pressure and the characters of the chest pain that she have possibility of aortic dissection is raised and patient had a CT chest and abdomen and pelvis with IV contrast that is negative for aortic dissection. No PE. Patient received morphine for pain and stated that she is feeling much better. Patient also given clonidine for 1 mg for high blood pressure. Patient advised to follow-up with her primary care physician in the next 2 to 3 days and to return to the ER she develop any new symptoms. Patient has been counseled about blood pressure. Critical care attestation.: If time is entered above; I have spent that time in minutes in the direct care of this critically ill patient, excluding procedure time. ED Disposition Clinical Impression: Chest pain, Malignant hypertension Disposition: DC-01 TO HOME OR SELFCARE Is pt being admited?: No Condition: Stable Instructions: Chest Pain (ED), Hypertension (ED) Referrals: PRIMARY CARE, [Primary Care Provider] - 3-5 Days
[2020-03-04 23:14] LABS: Basophils % (Auto) 0.4 % (0.0-1.8); Eosinophils # (Auto) 0.2 K/mm3 (0.0-0.4); Eosinophils % (Auto) 1.5 % (0.0-4.3); Hematocrit 31.8 % (30.3-42.9); Hemoglobin 10.3 gm/dl (10.1-14.3); Lymphocytes % (Auto) 27.5 % (13.4-35.0); Mean Corpuscular HGB Conc 33 % (30-34); Mean Corpuscular Volume 78 fl (79-97); Monocytes # (Auto) 0.7 K/mm3 (0.0-0.8); Monocytes % (Auto) 6.1 % (0.0-7.3); Platelet Count 322 K/mm3 (140-440); Red Blood Count 4.07 M/mm3 (3.65-5.03); Red Cell Distribution Width 17.1 % (13.2-15.2)
[2020-03-04 23:25] LABS: BUN/Creatinine Ratio 16; Blood Urea Nitrogen 14 mg/dL (7-17); Hemolysis Index 1
[2020-03-04 23:26] LABS: INR 1.06 (0.87-1.13)
[2020-03-04 23:27] LABS: Partial Thromboplastin Time 27.9 Sec. (24.2-36.6)
[2020-03-04 23:30] LABS: Alanine Aminotransferase 15 units/L (7-56); Albumin 3.9 g/dL (3.9-5)
[2020-03-04 23:35] LABS: Bilirubin,Direct < 0.2 mg/dL (0-0.2)
[2020-03-04] MEDS ORDERED: ONDANSETRON 4 MG/2 ML INJ IV ONE (23:54)
[2020-03-04] MEDS ORDERED: MORPHINE 4 MG/1 ML INJ IV ONE (23:54)
[2020-03-05 00:04] LABS: Bilirubin,Urine NEG (Negative); Blood,Urine MOD (Negative); Color,Urine Straw (Yellow); Protein,Urine <15 mg/dL mg/dL (Negative); Urobilinogen,Urine < 2.0 mg/dL (<2.0)
--- NOTE | 2020-03-05 00:04 | XRay Report ---
CHEST 1 VIEW INDICATION: Chest Pain. COMPARISON: None. FINDINGS: Support devices: None. Heart: Within normal limits. Lungs/Pleura: No acute air space or interstitial disease. Additional findings: None. IMPRESSION: No acute abnormality. Signer Name: Cristian Padilla MD Signed: 03/04/2020 11:59 PM Workstation Name: [id number]
--- NOTE | 2020-03-05 00:42 | Cat Scan Report ---
CT abdomen pelvis w con, CT chest w con INDICATION: Chest pain, elevated BP, rule out aortic dissectio. TECHNIQUE: All CT scans at this location are performed using the following dose modulation technique: Automated exposure control. CONTRAST: Omnipaque 350, 100 cc IV injection. COMPARISON: None available. CT CHEST: The lungs contain no mass, infiltrate or pleural fluid. Negative for mediastinal mass or ad enopathy. Aorta is normal in caliber. Negative for dissection. CT ABDOMEN: The parenchymal organs are unremarkable in appearance. Negative for abdominal mass, fluid or inflammation. The bowel is not dilated or thickened. The aorta is normal in caliber. Negative for dissection. CT PELVIS: Negative for pelvic mass, fluid or inflammation. The appendix is normal. A fat-containing umbilical hernia is small. The iliac vessels are patent without dissection. IMPRESSION: 1. Negative for obstruction or localized inflammation. 2. Negative for dissection. Signer Name: Cristian Padilla MD Signed: 03/05/2020 12:37 AM Workstation Name: [id number]
[2020-03-05] MEDS ORDERED: cloNIDine 0.1 MG TAB PO ONE (00:55)
[2020-03-05 01:01] VITALS: BP 151/94
== END 2020-03-05 01:13 | disposition home or self-care (01) ==
LOC: ED 21:53
DX: R07.89 Other chest pain (principal); I10 Essential (primary) hypertension
CPT/HCPCS: 36415; 71045; 71260; 74177; 80048; 80076; 81001; 83690; 84484; 84703; 85025; 85379; 85610; 85730; 93005; 96374; 96375; 99285; J2270; J2405; Q9967

== ENCOUNTER 2020-11-05 17:16 | Emergency (ER) | payer SELFPAY ==
[2020-11-05] MEDS ORDERED: ONDANSETRON 4 MG/2 ML INJ IM ONE (17:18)
--- NOTE | 2020-11-05 20:45 | Emergency Department Report ---
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) Improves With: nothing Worsens With: palpation Context: fall Other Symptoms: other Associated Symptoms: snap/pop sensation, swelling, able to partially bear weight Treatments Prior to Arrival: cold therapy - Related Data Previous Rx's Medication Instructions Recorded Last Taken Type amLODIPine 10 mg PO DAILY #30 tablet 03/11/17 Unknown Rx lisinopriL [Zestril TAB] 20 mg PO QDAY #30 tablet 03/11/17 Unknown Rx Fluconazole (Nf) [Diflucan TAB] 150 mg PO DAILY #3 tablet 10/23/18 Unknown Rx metroNIDAZOLE [Flagyl] 500 mg PO Q12HR #14 tab 10/23/18 Unknown Rx Azithromycin [Zithromax Z-ANNA] 250 mg PO DAILY #6 tab 01/24/19 Unknown Rx Fluticasone [Flonase] 1 spray NS QDAY #1 bottle 01/24/19 Unknown Rx Ibuprofen [Ibuprofen 800] 800 mg PO TID PRN #30 tablet 01/24/19 Unknown Rx diphenhydrAMINE [Benadryl CAP] 25 mg PO Q6HR PRN #30 capsule 01/24/19 Unknown Rx predniSONE [Deltasone] 40 mg PO QDAY 5 Days #10 tab 01/24/19 Unknown Rx Ondansetron [Zofran Odt] 4 mg PO Q8HR PRN #14 tab.rapdis 03/05/20 Unknown Rx hydroCHLOROthiazide [HCTZ] 25 mg PO QDAY #30 tablet 03/05/20 Unknown Rx traMADoL [Ultram 50 MG tab] 50 mg PO Q4HR PRN #14 tablet 03/05/20 Unknown Rx Allergies Allergy/AdvReac Type Severity Reaction Status Date / Time clindamycin Allergy Unknown Verified 01/24/19 16:15 latex AdvReac Itching Verified 01/24/19 16:15 ED Review of Systems ROS: Stated complaint: LT KNEE/YEAST INFECTION Other details as noted in HPI Comment: All other systems reviewed and negative ED Past Medical Hx - Past Medical History Previous Medical History?: Yes Hx Hypertension: Yes Hx Asthma: Yes (pregancy) Additional medical history: TONSILITIS-frequent BV - Surgical History Past Surgical History?: Yes Additional Surgical History: Patient has been twice in the past and has 2 living children - Social History Smoking Status: Current Some Day Smoker Substance Use Type: Alcohol - Medications Home Medications: Home Medications Medication Instructions Recorded Confirmed Last Taken Type amLODIPine 10 mg PO DAILY #30 tablet 03/11/17 Unknown Rx lisinopriL [Zestril TAB] 20 mg PO QDAY #30 tablet 03/11/17 Unknown Rx Fluconazole (Nf) [Diflucan TAB] 150 mg PO DAILY #3 tablet 10/23/18 Unknown Rx metroNIDAZOLE [Flagyl] 500 mg PO Q12HR #14 tab 10/23/18 Unknown Rx Azithromycin [Zithromax Z-ANNA] 250 mg PO DAILY #6 tab 01/24/19 Unknown Rx Fluticasone [Flonase] 1 spray NS QDAY #1 bottle 01/24/19 Unknown Rx Ibuprofen [Ibuprofen 800] 800 mg PO TID PRN #30 tablet 01/24/19 Unknown Rx diphenhydrAMINE [Benadryl CAP] 25 mg PO Q6HR PRN #30 capsule 01/24/19 Unknown Rx predniSONE [Deltasone] 40 mg PO QDAY 5 Days #10 tab 01/24/19 Unknown Rx Ondansetron [Zofran Odt] 4 mg PO Q8HR PRN #14 tab.rapdis 03/05/20 Unknown Rx hydroCHLOROthiazide [HCTZ] 25 mg PO QDAY #30 tablet 03/05/20 Unknown Rx traMADoL [Ultram 50 MG tab] 50 mg PO Q4HR PRN #14 tablet 03/05/20 Unknown Rx ED Physical Exam - General Limitations: No Limitations General appearance: alert, in no apparent distress - Head Head exam: Present: atraumatic, normocephalic - Eye Eye exam: Present: PERRL, EOMI Pupils: Present: normal accommodation - ENT ENT exam: Present: normal exam, normal orophraynx, mucous membranes moist, TM's normal bilaterally - Neck Neck exam: Present: normal inspection, full ROM. Absent: tenderness, lymphadenopathy, thyromegaly - Respiratory Respiratory exam: Present: normal lung sounds bilaterally. Absent: respiratory distress, wheezes, rales, rhonchi, accessory muscle use, decreased breath sounds - Cardiovascular Cardiovascular Exam: Present: regular rate, normal rhythm. Absent: systolic murmur, diastolic murmur, rubs, gallop - GI/Abdominal GI/Abdominal exam: Present: soft, normal bowel sounds - Extremities Exam Extremities exam: Present: normal inspection - Back Exam Back exam: Present: normal inspection - Neurological Exam Neurological exam: Present: alert, oriented X3, CN II-XII intact - Psychiatric Psychiatric exam: Present: normal affect, normal mood - Skin Skin exam: Present: warm, dry, intact, normal color. Absent: rash ED Course Vital Signs 11/05/20 17:51 Temperature 98.1 F Pulse Rate 81 Respiratory 18 Rate Blood Pressure 171/111 [Right] O2 Sat by Pulse 100 Oximetry Critical care attestation.: If time is entered above; I have spent that time in minutes in the direct care of this critically ill patient, excluding procedure time. ED Disposition Clinical Impression: Knee pain, Popliteal pain Disposition: DC/TX-65 PS[facility] HOSP/PSY UNIT Is pt being admited?: No Does the pt Need Aspirin: No Condition: Stable Instructions: How to Use a Knee Brace, Acute Knee Pain, Adult Referrals: JANEL MC MD [Primary Care Provider] - 3-5 Days
[2020-11-05 21:18] VITALS: BP 147/90
== END 2020-11-05 21:17 | disposition home or self-care (01) ==
LOC: ED 17:16
DX: M25.561 Pain in right knee (principal); M79.669 Pain in unspecified lower leg; I10 Essential (primary) hypertension; J45.909 Unspecified asthma, uncomplicated; F17.200 Nicotine dependence, unspecified, uncomplicated; Z79.899 Other long term (current) drug therapy; Z91.040 Latex allergy status; Z88.8 Allergy status to other drugs, medicaments and biological substances
CPT/HCPCS: 99282

== ENCOUNTER 2021-03-13 19:57 | Emergency (ER) | payer SELFPAY ==
[2021-03-13 21:40] LABS: Basophils # (Auto) 0.1 K/mm3 (0.0-0.1); Basophils % (Auto) 0.6 % (0.0-1.8); Eosinophils # (Auto) 0.2 K/mm3 (0.0-0.4); Eosinophils % (Auto) 2.2 % (0.0-4.3); Hematocrit 33.6 % (30.3-42.9); Hemoglobin 11.1 gm/dl (10.1-14.3); Lymphocytes # (Auto) 3.3 K/mm3 (1.2-5.4); Lymphocytes % (Auto) 31.3 % (13.4-35.0); Mean Corpuscular HGB Conc 33 % (30-34); Mean Corpuscular Volume 81 fl (79-97); Monocytes # (Auto) 0.9 K/mm3 (0.0-0.8); Monocytes % (Auto) 8.5 % (0.0-7.3); Platelet Count 316 K/mm3 (140-440); Red Blood Count 4.16 M/mm3 (3.65-5.03); Red Cell Distribution Width 16.8 % (13.2-15.2)
--- NOTE | 2021-03-13 21:49 | XRay Report ---
CHEST 2 VIEWS INDICATION / CLINICAL INFORMATION: elevated BP. FINDINGS: SUPPORT DEVICES: None. HEART / MEDIASTINUM: No significant abnormality. LUNGS / PLEURA: No significant pulmonary or pleural abnormality. No pneumothorax. ADDITIONAL FINDINGS: No significant additional findings. IMPRESSION: 1. No acute findings. Signer Name: Yuriy Lawrence MD Signed: 03/13/2021 9:45 PM Workstation Name: [id number]
[2021-03-13 21:51] LABS: Alanine Aminotransferase 15 units/L (7-56); Albumin 4.3 g/dL (3.9-5); BUN/Creatinine Ratio 15; Blood Urea Nitrogen 12 mg/dL (7-17); Calcium 9.1 mg/dL (8.4-10.2); Hemolysis Index 6
[2021-03-13] MEDS ORDERED: cloNIDine 0.1 MG TAB PO ONE (21:51)
[2021-03-13] MEDS ORDERED: MORPHINE 4 MG/1 ML INJ IM ONE (21:52)
[2021-03-13] MEDS ORDERED: ONDANSETRON 4 MG/2 ML INJ IM ONE (21:52)
--- NOTE | 2021-03-13 21:56 | Emergency Department Report ---
ED General Adult HPI - General Chief complaint: High BP Stated complaint: HIGH BP Time Seen by Provider: 03/13/21 21:44 Source: patient Mode of arrival: Ambulatory Limitations: No Limitations - History of Present Illness Initial comments: Patient is a 40 years old female with history of hypertension, noncompliant with her medication. Patient supposed to take amlodipine 10 mg daily however patient admitted that she is not taking her medication regularly. Patient presented to the ER complaining of headache, back pain, generalized body pain and dizziness the last 2 days. Patient denied any chest pain or shortness of breath. No focal weakness numbness or tingling sensation. No bowel or bladder incontinence. No neck pain. - Related Data Previous Rx's Medication Instructions Recorded Last Taken Type amLODIPine 10 mg PO DAILY #30 tablet 03/11/17 Unknown Rx lisinopriL [Zestril TAB] 20 mg PO QDAY #30 tablet 03/11/17 Unknown Rx metroNIDAZOLE [Flagyl] 500 mg PO Q12HR #14 tab 10/23/18 Unknown Rx Azithromycin [Zithromax Z-ANNA] 250 mg PO DAILY #6 tab 01/24/19 Unknown Rx Fluticasone [Flonase] 1 spray NS QDAY #1 bottle 01/24/19 Unknown Rx Ibuprofen [Ibuprofen 800] 800 mg PO TID PRN #30 tablet 01/24/19 Unknown Rx diphenhydrAMINE [Benadryl CAP] 25 mg PO Q6HR PRN #30 capsule 01/24/19 Unknown Rx predniSONE [Deltasone] 40 mg PO QDAY 5 Days #10 tab 01/24/19 Unknown Rx Ondansetron [Zofran Odt] 4 mg PO Q8HR PRN #14 tab.rapdis 03/05/20 Unknown Rx hydroCHLOROthiazide [HCTZ] 25 mg PO QDAY #30 tablet 03/05/20 Unknown Rx traMADoL [Ultram 50 MG tab] 50 mg PO Q4HR PRN #14 tablet 03/05/20 Unknown Rx Fluconazole (Nf) [Diflucan TAB] 150 mg PO DAILY #3 tablet 11/05/20 Unknown Rx Ketorolac [Toradol] 10 mg PO Q6H PRN #10 tablet 11/05/20 Unknown Rx methOCARBAMOL [Robaxin] 750 mg PO Q8H PRN #21 tablet 11/05/20 Unknown Rx hydroCHLOROthiazide [HCTZ] 25 mg PO QDAY #30 tablet 03/13/21 Unknown Rx Allergies Allergy/AdvReac Type Severity Reaction Status Date / Time clindamycin Allergy Unknown Verified 01/24/19 16:15 latex AdvReac Itching Verified 01/24/19 16:15 ED Review of Systems ROS: Stated complaint: HIGH BP Other details as noted in HPI Comment: All other systems reviewed and negative Constitutional: denies: chills, fever Respiratory: denies: cough, shortness of breath, SOB with exertion Cardiovascular: denies: chest pain, palpitations Gastrointestinal: denies: abdominal pain, nausea, vomiting, diarrhea, constipation, hematemesis, melena, hematochezia Genitourinary: denies: urgency, dysuria, frequency, hematuria Musculoskeletal: back pain, myalgia Neurological: headache. denies: weakness ED Past Medical Hx - Past Medical History Previous Medical History?: Yes Hx Hypertension: Yes Hx Asthma: Yes (pregancy) Additional medical history: TONSILITIS-frequent BV - Surgical History Past Surgical History?: Yes Additional Surgical History: Patient has been twice in the past and has 2 living children - Social History Smoking Status: Current Some Day Smoker Substance Use Type: Alcohol - Medications Home Medications: Home Medications Medication Instructions Recorded Confirmed Last Taken Type amLODIPine 10 mg PO DAILY #30 tablet 03/11/17 Unknown Rx lisinopriL [Zestril TAB] 20 mg PO QDAY #30 tablet 03/11/17 Unknown Rx metroNIDAZOLE [Flagyl] 500 mg PO Q12HR #14 tab 10/23/18 Unknown Rx Azithromycin [Zithromax Z-ANNA] 250 mg PO DAILY #6 tab 01/24/19 Unknown Rx Fluticasone [Flonase] 1 spray NS QDAY #1 bottle 01/24/19 Unknown Rx Ibuprofen [Ibuprofen 800] 800 mg PO TID PRN #30 tablet 01/24/19 Unknown Rx diphenhydrAMINE [Benadryl CAP] 25 mg PO Q6HR PRN #30 capsule 01/24/19 Unknown Rx predniSONE [Deltasone] 40 mg PO QDAY 5 Days #10 tab 01/24/19 Unknown Rx Ondansetron [Zofran Odt] 4 mg PO Q8HR PRN #14 tab.rapdis 03/05/20 Unknown Rx hydroCHLOROthiazide [HCTZ] 25 mg PO QDAY #30 tablet 03/05/20 Unknown Rx traMADoL [Ultram 50 MG tab] 50 mg PO Q4HR PRN #14 tablet 03/05/20 Unknown Rx Fluconazole (Nf) [Diflucan TAB] 150 mg PO DAILY #3 tablet 11/05/20 Unknown Rx Ketorolac [Toradol] 10 mg PO Q6H PRN #10 tablet 11/05/20 Unknown Rx methOCARBAMOL [Robaxin] 750 mg PO Q8H PRN #21 tablet 11/05/20 Unknown Rx hydroCHLOROthiazide [HCTZ] 25 mg PO QDAY #30 tablet 03/13/21 Unknown Rx ED Physical Exam - General Limitations: No Limitations General appearance: alert, in no apparent distress - Head Head exam: Present: atraumatic, normocephalic, normal inspection - Eye Eye exam: Present: normal appearance - ENT ENT exam: Present: normal exam, normal orophraynx, mucous membranes moist - Neck Neck exam: Present: normal inspection, full ROM. Absent: tenderness, meningismus, lymphadenopathy, thyromegaly - Respiratory Respiratory exam: Present: normal lung sounds bilaterally - Cardiovascular Cardiovascular Exam: Present: regular rate, normal rhythm, normal heart sounds - GI/Abdominal GI/Abdominal exam: Present: soft, normal bowel sounds. Absent: distended, t enderness, guarding, rebound, rigid, organomegaly, mass, bruit, pulsatile mass, hernia - Extremities Exam Extremities exam: Present: normal inspection, full ROM, normal capillary refill. Absent: tenderness, pedal edema, joint swelling, calf tenderness - Back Exam Back exam: Present: normal inspection, full ROM. Absent: CVA tenderness (R), CVA tenderness (L) - Neurological Exam Neurological exam: Present: alert, oriented X3, CN II-XII intact - Psychiatric Psychiatric exam: Present: normal mood - Skin Skin exam: Present: warm, intact, normal color ED Course Vital Signs 03/13/21 03/13/21 03/13/21 20:10 22:00 23:35 Temperature 98.3 F Pulse Rate 90 Respiratory 18 Rate Blood Pressure 196/111 195/102 185/101 O2 Sat by Pulse 96 Oximetry 03/14/21 02:00 Temperature Pulse Rate 76 Respiratory Rate Blood Pressure 185/105 O2 Sat by Pulse Oximetry ED Medical Decision Making - Lab Data Result diagrams: 03/13/21 20:47 03/13/21 20:47 - EKG Data -: EKG Interpreted by Me EKG shows normal: sinus rhythm Rate: normal - EKG Data Interpretation: no acute changes - Medical Decision Making Patient is a 40 years old female with history of hypertension, noncompliant with her medication. Patient supposed to take amlodipine 10 mg daily however patient admitted that she is not taking her medication regularly. Patient presented to the ER complaining of headache, back pain, generalized body pain and dizziness the last 2 days. Patient denied any chest pain or shortness of breath. No focal weakness numbness or tingling sensation. No bowel or bladder incontinence. No neck pain. Labs reviewed and is unremarkable including negative troponin. Patient received multiple doses of antihypertensive medicine including clonidine, hydralazine and labetalol. Patient blood pressure improved to 145/98. Patient stated that she is feeling much better. Patient counseled about compliance with her antihypertensive medicine. I added hydrochlorothiazide to her Norvasc and strongly advised the patient to follow-up with her primary care physician in the next 2 to 3 days and to return to the ER if she develop any new symptoms. Critical care attestation.: If time is entered above; I have spent that time in minutes in the direct care of this critically ill patient, excluding procedure time. ED Disposition Clinical Impression: Malignant hypertension Disposition: DC-01 TO HOME OR SELFCARE Is pt being admited?: No Condition: Stable Instructions: Hypertension (ED), Managing Your Hypertension Prescriptions: hydroCHLOROthiazide [HCTZ] 25 mg PO QDAY #30 tablet Referrals: PRIMARY CARE, [Primary Care Provider] - 3-5 Days
[2021-03-13] MEDS ORDERED: MORPHINE 4 MG/1 ML INJ IV ONE (23:08)
[2021-03-13] MEDS ORDERED: hydrALAZINE 20 MG/1 ML INJ IV ONE (23:24)
[2021-03-14] MEDS ORDERED: ACETAMINOPHEN 325 MG TAB PO ONE (02:22)
[2021-03-14 03:03] VITALS: BP 141/79
--- NOTE | 2021-03-15 17:52 | Electrocardiograph Report ---
[facility] Test Date: 2021-03-13 Test Time: 20:16:33 Pat Name: CINDY BEGUM Department: Room: Gender: F Emt I/85: SAM : 1980 Requested By: FIDENCIO JEWELL Order Number: [id number] Reading MD: Tacos Loja Measurements Intervals Ismay Rate: 77 P: 30 SD: 155 QRS: 21 QRSD: 96 T: 27 QT: 413 QTc: 468 Interpretive Statements Sinus rhythm Nonspecific T abnrm, anterolateral leads No previous ECG available for comparison Electronically Signed On 03-15-2021 17:51:57 EDT by Tacos Loja
== END 2021-03-14 03:21 | disposition home or self-care (01) ==
LOC: ED 19:57
DX: I10 Essential (primary) hypertension (principal); F17.200 Nicotine dependence, unspecified, uncomplicated; Z79.899 Other long term (current) drug therapy; Z88.8 Allergy status to other drugs, medicaments and biological substances; Z91.040 Latex allergy status; Z98.890 Other specified postprocedural states
CPT/HCPCS: 36415; 71046; 80053; 84484; 84703; 85025; 93005; 96372; 96374; 96375; 99284; J0360; J2270; J2405

== ENCOUNTER 2021-04-28 09:09 | Emergency (ER) | payer SELFPAY ==
[2021-04-28 09:16] VITALS: BP 194/119
[2021-04-28 10:45] LABS: Bacteria,Urine 1+ /HPF (Negative); Bilirubin,Urine NEG (Negative); Blood,Urine SM (Negative); Color,Urine Yellow (Yellow); Hyaline Casts,Urine 1 /LPF; Urobilinogen,Urine < 2.0 mg/dL (<2.0)
[2021-04-28 10:54] LABS: HCG Qualitative,Urine Negative (Negative)
[2021-04-28] MEDS ORDERED: LIDOCAINE-MPF (1%) 10 MG/1 ML VIAL 5 ML INFILTRATI ONE (11:06)
--- NOTE | 2021-04-28 11:13 | Emergency Department Report ---
ED General Adult HPI - General Chief complaint: Urogenital-Female Stated complaint: yeast infection Time Seen by Provider: 04/28/21 10:08 Source: patient Mode of arrival: Ambulatory Limitations: No Limitations - History of Present Illness Initial comments: 40-year-old -[place] female patient presents with complaints of malodorous vaginal discharge x2 weeks. She states a history of recurrent BV and yeast infections. She denies any vaginal itching/rash/lesions, dyspareunia, fever/chills/sweats, dysuria/hematuria, or urinary frequency. She reports mild intermittent lower abdominal cramping, but denies any current abdominal pain. Blood pressure noted to be significantly elevated. Patient states history of hard to control hypertension and states she has been out of her amlodipine for 1 month. She denies any neurological symptoms today or history of stroke. -: Sudden - Related Data Previous Rx's Medication Instructions Recorded Last Taken Type amLODIPine 10 mg PO DAILY #30 tablet 03/11/17 Unknown Rx lisinopriL [Zestril TAB] 20 mg PO QDAY #30 tablet 03/11/17 Unknown Rx metroNIDAZOLE [Flagyl] 500 mg PO Q12HR #14 tab 10/23/18 Unknown Rx Azithromycin [Zithromax Z-ANNA] 250 mg PO DAILY #6 tab 01/24/19 Unknown Rx Fluticasone [Flonase] 1 spray NS QDAY #1 bottle 01/24/19 Unknown Rx Ibuprofen [Ibuprofen 800] 800 mg PO TID PRN #30 tablet 01/24/19 Unknown Rx diphenhydrAMINE [Benadryl CAP] 25 mg PO Q6HR PRN #30 capsule 01/24/19 Unknown Rx predniSONE [Deltasone] 40 mg PO QDAY 5 Days #10 tab 01/24/19 Unknown Rx Ondansetron [Zofran Odt] 4 mg PO Q8HR PRN #14 tab.rapdis 03/05/20 Unknown Rx hydroCHLOROthiazide [HCTZ] 25 mg PO QDAY #30 tablet 03/05/20 Unknown Rx traMADoL [Ultram 50 MG tab] 50 mg PO Q4HR PRN #14 tablet 03/05/20 Unknown Rx Fluconazole (Nf) [Diflucan TAB] 150 mg PO DAILY #3 tablet 11/05/20 Unknown Rx Ketorolac [Toradol] 10 mg PO Q6H PRN #10 tablet 11/05/20 Unknown Rx methOCARBAMOL [Robaxin] 750 mg PO Q8H PRN #21 tablet 11/05/20 Unknown Rx hydroCHLOROthiazide [HCTZ] 25 mg PO QDAY #30 tablet 03/13/21 Unknown Rx Doxycycline Monohydrate 100 mg PO BID 7 Days #14 capsule 04/28/21 Unknown Rx Fluconazole [Diflucan TAB] 200 mg PO QDAY #1 tablet 04/28/21 Unknown Rx amLODIPine 10 mg PO DAILY 30 Days #30 tab 04/28/21 Unknown Rx metroNIDAZOLE [Flagyl] 500 mg PO Q12HR 7 Days #14 tab 04/28/21 Unknown Rx Allergies Allergy/AdvReac Type Severity Reaction Status Date / Time clindamycin Allergy Unknown Verified 01/24/19 16:15 latex AdvReac Itching Verified 01/24/19 16:15 ED Review of Systems ROS: Stated complaint: yeast infection Other details as noted in HPI Constitutional: denies: chills, diaphoresis, fever, malaise Eyes: denies: vision change Respiratory: denies: shortness of breath Cardiovascular: denies: chest pain Genitourinary: discharge. denies: urgency, dysuria, frequency, hematuria, abnormal menses, dyspareunia Skin: denies: lesions, change in color Neurological: denies: headache, numbness, paresthesias, confusion, abnormal gait, vertigo Hematological/Lymphatic: denies: swollen glands ED Past Medical Hx - Past Medical History Previous Medical History?: Yes Hx Hypertension: Yes Hx Asthma: Yes (pregancy) Additional medical history: TONSILITIS-frequent BV - Surgical History Past Surgical History?: No Additional Surgical History: Patient has been twice in the past and has 2 living children - Social History Smoking Status: Current Some Day Smoker Substance Use Type: Alcohol - Medications Home Medications: Home Medications Medication Instructions Recorded Confirmed Last Taken Type amLODIPine 10 mg PO DAILY #30 tablet 03/11/17 Unknown Rx lisinopriL [Zestril TAB] 20 mg PO QDAY #30 tablet 03/11/17 Unknown Rx metroNIDAZOLE [Flagyl] 500 mg PO Q12HR #14 tab 10/23/18 Unknown Rx Azithromycin [Zithromax Z-ANNA] 250 mg PO DAILY #6 tab 01/24/19 Unknown Rx Fluticasone [Flonase] 1 spray NS QDAY #1 bottle 01/24/19 Unknown Rx Ibuprofen [Ibuprofen 800] 800 mg PO TID PRN #30 tablet 01/24/19 Unknown Rx diphenhydrAMINE [Benadryl CAP] 25 mg PO Q6HR PRN #30 capsule 01/24/19 Unknown Rx predniSONE [Deltasone] 40 mg PO QDAY 5 Days #10 tab 01/24/19 Unknown Rx Ondansetron [Zofran Odt] 4 mg PO Q8HR PRN #14 tab.rapdis 03/05/20 Unknown Rx hydroCHLOROthiazide [HCTZ] 25 mg PO QDAY #30 tablet 03/05/20 Unknown Rx traMADoL [Ultram 50 MG tab] 50 mg PO Q4HR PRN #14 tablet 03/05/20 Unknown Rx Fluconazole (Nf) [Diflucan TAB] 150 mg PO DAILY #3 tablet 11/05/20 Unknown Rx Ketorolac [Toradol] 10 mg PO Q6H PRN #10 tablet 11/05/20 Unknown Rx methOCARBAMOL [Robaxin] 750 mg PO Q8H PRN #21 tablet 11/05/20 Unknown Rx hydroCHLOROthiazide [HCTZ] 25 mg PO QDAY #30 tablet 03/13/21 Unknown Rx Doxycycline Monohydrate 100 mg PO BID 7 Days #14 capsule 04/28/21 Unknown Rx Fluconazole [Diflucan TAB] 200 mg PO QDAY #1 tablet 04/28/21 Unknown Rx amLODIPine 10 mg PO DAILY 30 Days #30 tab 04/28/21 Unknown Rx metroNIDAZOLE [Flagyl] 500 mg PO Q12HR 7 Days #14 tab 04/28/21 Unknown Rx ED Physical Exam - General Limitations: No Limitations General appearance: alert, in no apparent distress - Head Head exam: Present: atraumatic, normocephalic - Eye Eye exam: Present: normal appearance - Respiratory Respiratory exam: Present: normal lung sounds bilaterally. Absent: respiratory distress - Cardiovascular Cardiovascular Exam: Present: regular rate, normal rhythm - GI/Abdominal GI/Abdominal exam: Present: soft, normal bowel sounds. Absent: distended, tenderness, guarding, rebound, rigid - Expanded Exam Expanded Female exam: Present: deferred - Back Exam Back exam: Absent: CVA tenderness (R), CVA tenderness (L) - Neurological Exam Neurological exam: Present: alert, altered - Psychiatric Psychiatric exam: Present: normal affect, normal mood ED Course Vital Signs 04/28/21 09:15 Temperature 98.7 F Pulse Rate 94 H Respiratory 18 Rate Blood Pressure 194/119 O2 Sat by Pulse 100 Oximetry ED Medical Decision Making - Medical Decision Making 40-year-old -[place] female patient presents with complaints of malodorous vaginal discharge x2 weeks. She states a history of recurrent BV and yeast infections. She denies any vaginal itching/rash/lesions, dyspareunia, fever/chills/sweats, dysuria/hematuria, or urinary frequency. She reports mild intermittent lower abdominal cramping, but denies any current abdominal pain. Blood pressure noted to be significantly elevated. Patient states history of hard to control hypertension and states she has been out of her amlodipine for 1 month. She denies any neurological symptoms today or history of stroke. UA is normal. No significant abdominal tenderness on exam. Will symptoms empirically with Flagyl and cover for gonorrhea and chlamydia. Patient advised to refrain from any sexual activity for 2 weeks. Patient will also receive a refill of her amlodipine. Patient provided with health clinic list to follow-up with and advised to follow-up within 3 days. She is otherwise well-appearing and stable for discharge home. Strict return precautions were discussed in detail with patient verbalized understanding. Critical care attestation.: If time is entered above; I have spent that time in minutes in the direct care of this critically ill patient, excluding procedure time. ED Disposition Clinical Impression: Vaginal discharge, Noncompliance with medication regimen Disposition: DC-01 TO HOME OR SELFCARE Is pt being admited?: No Condition: Stable Instructions: Vaginitis, Gonorrhea, Chlamydia, Female, Preventing Sexually Transmitted Infections, Adult Prescriptions: amLODIPine 10 mg PO DAILY 30 Days #30 tab Fluconazole [Diflucan TAB] 200 mg PO QDAY #1 tablet Doxycycline Monohydrate 100 mg PO BID 7 Days #14 capsule metroNIDAZOLE [Flagyl] 500 mg PO Q12HR 7 Days #14 tab Referrals: PRIMARY CARE, [Primary Care Provider] - 3-5 Days [facility] [Provider Group] - 3-5 Days
== END 2021-04-28 12:47 | disposition home or self-care (01) ==
LOC: ED 09:09
DX: N89.8 Other specified noninflammatory disorders of vagina (principal); I10 Essential (primary) hypertension; F17.200 Nicotine dependence, unspecified, uncomplicated; Z88.8 Allergy status to other drugs, medicaments and biological substances; Z79.899 Other long term (current) drug therapy; Z91.040 Latex allergy status; Z98.890 Other specified postprocedural states; Z91.14 Patient's other noncompliance with medication regimen
CPT/HCPCS: 81001; 81025; 96372; 99283; J0696